=== PATIENT | female | born 1960 | race Caucasian/White ===

== ENCOUNTER 2017-10-12 08:02 | Outpatient (CLI) | payer MEDICARE | END 2017-10-12 08:03 | disposition home or self-care (01) | LOC: BICMAMMO 08:02 | PROVIDERS: ATTEND Obstetrics & Gynecology | DX: Z12.31 Encounter for screening mammogram for malignant neoplasm of breast (principal) | CPT/HCPCS: 77063; 77067 ==

== ENCOUNTER 2017-10-31 19:30 | Outpatient (CLI) | payer MEDICARE | END 2017-10-31 19:31 | disposition home or self-care (01) | LOC: SLEEPLAB 19:30 | PROVIDERS: ATTEND Orthopaedic Surgery Sports Medicine | DX: G47.9 Sleep disorder, unspecified (principal); R53.83 Other fatigue; R40.0 Somnolence; F32.9 Major depressive disorder, single episode, unspecified; G47.33 Obstructive sleep apnea (adult) (pediatric) | CPT/HCPCS: 95810 ==

== ENCOUNTER 2018-01-31 19:30 | Outpatient (CLI) | payer MEDICARE | END 2018-01-31 19:31 | disposition home or self-care (01) | LOC: SLEEPLAB 19:30 | PROVIDERS: ATTEND Obstetrics & Gynecology | DX: F51.9 Sleep disorder not due to a substance or known physiological condition, unspecified (principal); G47.33 Obstructive sleep apnea (adult) (pediatric); R53.83 Other fatigue; F32.9 Major depressive disorder, single episode, unspecified; R06.83 Snoring; G47.10 Hypersomnia, unspecified; E66.9 Obesity, unspecified; Z68.41 Body mass index [BMI] 40.0-44.9, adult | CPT/HCPCS: 95811 ==

== ENCOUNTER 2019-03-20 10:23 | Outpatient (CLI) | payer MEDICARE | END 2019-03-20 10:24 | disposition home or self-care (01) | LOC: DTY/OP 10:23 | PROVIDERS: ATTEND Specialist | DX: E66.01 Morbid (severe) obesity due to excess calories (principal); Z01.818 Encounter for other preprocedural examination | CPT/HCPCS: 36415; 80053; 80061; 82306; 82607; 82728; 82746; 83036; 83540; 84425; 84436; 84443; 84480; 85025; 86677; 97802 ==

== ENCOUNTER 2019-11-16 06:06 | Outpatient (CLI) | payer MEDICARE, OTHER ==
[2019-11-16 17:33] LABS: #Basophils 0.1 thou/uL (0.0-0.2); #Eosinphils 0.3 thou/uL (0.0-0.7); #Lymphocytes 2.7 thou/uL (1.20-3.40); #Monocytes 0.4 thou/uL (0.11-0.59); #Neutrophils 7.3 thou/uL (1.40-6.50); %Basophils 0.6 % (0.0-1.0); %Eosinophils 3.1 % (0.0-10.0); %Lymphocytes 24.6 % (21.0-51.0); %Neutrophils 67.7 % (42.0-75.0); Hemoglobin 13.7 g/dL (12.0-16.0); Mean Corpuscular HGB CONC 32.9 g/dL (32.0-36.0); Mean Corpuscular Volume 94.1 fL (78.0-98.0); Mean Platelet Volume 8.4 fL (7.4-10.4); Platelet Count 317 thou/uL (130-400); RBC Distribution Width 13.4 % (11.5-14.5); Red Blood Cell (RBC) Count 4.42 mill/uL (4.20-5.40); White Blood Cell (WBC) Count 10.8 thou/uL (4.8-10.8)
[2019-11-16 17:43] LABS: ALT (SGPT) 39 U/L (8-55); AST (SGOT) 35 U/L (5-34); Albumin 4.5 g/dL (3.5-5.0); Alkaline Phosphatase 144 U/L (40-110); Anion Gap 18 mmol/L (10-20); BUN (Urea Nitrogen) 10 mg/dL (9.8-20.1); Bilirubin, Total 0.3 mg/dL (0.2-1.2); Calc. Creatinine Clearance 0 mL/min (70-130); Calcium 9.7 mg/dL (7.8-10.44); Carbon Dioxide 28 mmol/L (22-29); Chloride 102 mmol/L (98-107); Estimated GFR-MDRD 78; Globulin 2.7 g/dL (2.4-3.5); Glucose 95 mg/dL (70-105); Lipase 24 U/L (8-78); Potassium 4.8 mmol/L (3.5-5.1); Protein, Total 7.2 g/dL (6.0-8.3); Sodium 143 mmol/L (136-145)
[2019-11-16 18:01] LABS: Free T4 (Free Thyroxine) 0.83 ng/dL (0.70-1.48); Thyroid Stimulating Hormone 0.9849 uIU/mL (0.35-4.94)
[2019-11-17 12:16] LABS: SARS-CoV-2 MS2 Positive; SARS-CoV-2 N Gene Negative; SARS-CoV-2 S Gene Negative; SARS-CoV-2 orf1ab Negative
== END 2019-11-16 06:07 | disposition home or self-care (01) ==
LOC: LABBT 06:06
PROVIDERS: ATTEND Internal Medicine
DX: Z01.812 Encounter for preprocedural laboratory examination (principal); Z11.59 Encounter for screening for other viral diseases; K21.9 Gastro-esophageal reflux disease without esophagitis; K52.9 Noninfective gastroenteritis and colitis, unspecified
CPT/HCPCS: 83516; 83690; 84439; U0003; 80053; 84443; 85025; 87635

== ENCOUNTER 2019-11-20 08:18 | Day surgery (SDC) | payer MEDICARE ==
[2019-11-13 11:21] VITALS: BMI 49.0
[2019-11-20] MEDS ORDERED: PROPOFOL 200 MG/20 ML VIAL ONE (12:29)
--- NOTE | 2019-11-20 12:36 | OP ---
DATE OF PROCEDURE: 11/20/2019 PROFESSOR OF BIOCHEMISTRY SURGEON: None. PROCEDURES PERFORMED: 1. Esophagogastroduodenoscopy with biopsies. 2. Colonoscopy with biopsies. INDICATIONS: 1. Chronic diarrhea. 2. Gastroesophageal reflux. 3. Prior history of colon polyps, with last colonoscopy 10 years ago. MEDICATIONS: See Anesthesia record. FINDINGS: After discussion of the risks, benefits, and alternatives of the procedure, informed consent was obtained and witnessed. Pre-endoscopic cardiopulmonary examination was satisfactory. Time-out was performed before sedation was achieved. Sedation was achieved with Anesthesia assistance in the endoscopy unit. A Pentax adult upper endoscope was placed into the oropharynx and passed through the cricopharyngeus under direct visualization. The esophageal mucosa appeared normal throughout with a normal-appearing Z-line at 36 cm from the incisors. The endoscope was then advanced into the stomach. Forward and retroflexed views of the entire gastric mucosa were obtained. There were few small fundic gland polyps in the gastric fundus and body. In the gastric body along the greater curvature, there are couple of areas of small linear erosions consistent with mild erosive gastritis. The remainder of the gastric mucosa appeared normal. Biopsies were obtained from the gastric antrum and body to rule out H pylori infection. The endoscope was advanced through the pylorus and into the first and second portions of the duodenum, which appeared normal. Duodenal biopsies were obtained to rule out celiac disease. The upper endoscope was completely removed and the patient was repositioned. Digital rectal exam was performed, which was unremarkable. A Pentax adult colonoscope was inserted into the anus and passed forward to the cecum in the usual fashion. The cecal base was identified by the appendiceal orifice as well as the ileocecal valve. The terminal ileum was intubated and the ileal mucosa appeared normal. The colonoscope was then slowly withdrawn in a gradual and circumferential manner with careful examination of the entire colonic mucosa. The quality of the prep was good. The colonic mucosa appeared normal throughout. I obtained random colon biopsies from the right colon and left colon for histology to rule out microscopic colitis, but there was no evidence of any inflammation seen endoscopically. There was diverticulosis in the sigmoid colon. Retroflexion in the rectum demonstrated small internal hemorrhoids. The colonoscope was completely withdrawn and the patient allowed to recover. The patient tolerated the procedure well. There were no immediate postprocedure complications. IMPRESSION: 1. Mild erosive gastritis in the gastric body, biopsied to rule out Helicobacter pylori. 2. Otherwise, normal esophagogastroduodenoscopy, with duodenal biopsies obtained to rule out celiac disease. 3. Sigmoid diverticulosis. 4. Internal hemorrhoids. 5. Otherwise, normal colonoscopy to the terminal ileum, with random colon biopsies obtained to rule out microscopic colitis. RECOMMENDATIONS: 1. Follow up pathology on the gastric duodenal and random colon biopsies. 2. Follow up stool studies, which are still pending. 3. If stool studies and pathology are unrevealing, we will likely trial her on a 2-week course of rifaximin 550 mg t.i.d. for treatment of IBS-D. 4. Repeat colonoscopy in 10 years for screening purposes. 5. Follow up in [facility] Clinic in 1 month. Job ID: [id number]
== END 2019-11-20 12:10 | disposition home or self-care (01) ==
LOC: SDC 08:18
PROVIDERS: ATTEND Internal Medicine
PROC: 0DB98ZX Excision of Duodenum, Via Natural or Artificial Opening Endoscopic, Diagnostic (ICD-10-PCS; principal; 2019-11-20)
PROC: 0DB78ZX Excision of Stomach, Pylorus, Via Natural or Artificial Opening Endoscopic, Diagnostic (ICD-10-PCS; 2019-11-20)
PROC: 0DBG8ZX Excision of Left Large Intestine, Via Natural or Artificial Opening Endoscopic, Diagnostic (ICD-10-PCS; 2019-11-20)
PROC: 0DBF8ZX Excision of Right Large Intestine, Via Natural or Artificial Opening Endoscopic, Diagnostic (ICD-10-PCS; 2019-11-20)
DX: K57.30 Diverticulosis of large intestine without perforation or abscess without bleeding (principal); K64.8 Other hemorrhoids; K31.89 Other diseases of stomach and duodenum; K52.9 Noninfective gastroenteritis and colitis, unspecified; K21.9 Gastro-esophageal reflux disease without esophagitis; I10 Essential (primary) hypertension; E78.5 Hyperlipidemia, unspecified; J45.909 Unspecified asthma, uncomplicated; M06.9 Rheumatoid arthritis, unspecified; F32.9 Major depressive disorder, single episode, unspecified; G47.33 Obstructive sleep apnea (adult) (pediatric); E11.9 Type 2 diabetes mellitus without complications; M79.7 Fibromyalgia; Z86.010 Personal history of colon polyps; Z79.84 Long term (current) use of oral hypoglycemic drugs; Z79.899 Other long term (current) drug therapy; Z88.2 Allergy status to sulfonamides; Z88.5 Allergy status to narcotic agent
CPT/HCPCS: 88305; 88312; J2704

== ENCOUNTER 2020-03-17 06:41 | Outpatient (CLI) | payer MEDICARE, OTHER ==
[2020-03-17 11:32] LABS: #Basophils 0.1 10x3/uL (0.0-0.2); #Eosinphils 0.2 10x3/uL (0.0-0.5); #Monocytes 0.5 10x3/uL (0.0-1.1); #Neutrophils 5.9 10x3/uL (1.5-8.4); %Basophils 0.7 % (0.0-2.0); %Eosinophils 2.5 % (0.0-6.0); %Lymphocytes 22.9 % (18.0-47.0); %Monocytes 5.4 % (0.0-10.0); %Neutrophils 67.9 % (40.0-75.0); Hemoglobin 12.6 g/dL (12.0-16.0); Mean Corpuscular HGB CONC 32.1 G/DL (32.0-36.0); Mean Corpuscular Hemoglobin 30.3 PG (27.0-33.0); Mean Corpuscular Volume 94.5 fl (80.0-100.0); Mean Platelet Volume 10.9 fl (7.4-10.4); Platelet Count 325 10x3/uL (130-400); Red Blood Cell (RBC) Count 4.16 10x6/uL (3.90-5.20); White Blood Cell (WBC) Count 8.6 10x3/uL (4.5-11.0)
[2020-03-17 12:00] LABS: Anion Gap 18 mmol/L (10-20); BUN (Urea Nitrogen) 13 mg/dL (9.8-20.1); Calc. Creatinine Clearance 0 mL/min (70-130); Calcium 9.1 mg/dL (7.8-10.44); Carbon Dioxide 23 mmol/L (22-29); Chloride 106 mmol/L (98-107); Estimated GFR-MDRD 81; Glucose 93 mg/dL (70-105); Potassium 4.7 mmol/L (3.5-5.1); Sodium 142 mmol/L (136-145)
[2020-03-18 12:08] LABS: SARS-CoV-2 MS2 Positive; SARS-CoV-2 N Gene Negative; SARS-CoV-2 S Gene Negative; SARS-CoV-2 by NAA Not Detected (NotDetected); SARS-CoV-2 orf1ab Negative
== END 2020-03-17 06:42 | disposition home or self-care (01) ==
LOC: LABBT 06:41
PROVIDERS: ATTEND Specialist
DX: Z01.812 Encounter for preprocedural laboratory examination (principal); E66.01 Morbid (severe) obesity due to excess calories; Z20.828 Contact with and (suspected) exposure to other viral communicable diseases
CPT/HCPCS: 80048; 85025; U0003; 87635

== ENCOUNTER 2020-03-17 09:00 | Inpatient (IN) | payer MEDICARE ==
[2020-03-19 09:34] VITALS: BMI 48.2
[2020-03-20] MEDS ORDERED: cefOXitin Sodium/Dextrose 2 GM/50 ML BAG ONE (06:26)
[2020-03-20] MEDS ORDERED: Acetaminophen 500 MG TAB ONE (06:26)
[2020-03-20] MEDS ORDERED: Scopolamine 1.5 mg/72 hour Patch ONE (06:26)
[2020-03-20] MEDS ORDERED: Ketorolac Tromethamine 30 MG/ML VIAL ONE (06:26)
[2020-03-20] MEDS ORDERED: Heparin 5,000 UNITS/ML VIAL ONE (06:26)
[2020-03-20] MEDS ORDERED: Bupivacaine 0.25% HCL 30 ML VIAL ONE (06:40)
[2020-03-20] MEDS ORDERED: EPINEPHrine 1 MG/ML AMP ONE (06:41)
[2020-03-20] MEDS ORDERED: Fentanyl 250 MCG/5 ML VIAL ONE (06:44)
[2020-03-20] MEDS ORDERED: Midazolam HCl 2 mg/2 ml Vial ONE ×2 (06:44→07:18)
[2020-03-20] MEDS ORDERED: Lidocaine 1% w/Epinephrine 1:100K 20 ML VIAL ONE (06:57)
[2020-03-20] MEDS ORDERED: Albuterol 200 PUFF (6.7GM INHALER) INH PRN (08:00)
[2020-03-20] MEDS ORDERED: Albuterol Sulfate 1.25 MG/3 ML NEB ONE (10:35)
[2020-03-20] MEDS ORDERED: Promethazine HCl 25 MG/ML VIAL SLOW IVP PRN (10:37)
[2020-03-20] MEDS ORDERED: Ondansetron HCl/PF 4 MG/2 ML Vial IVP PRN (10:37)
[2020-03-20] MEDS ORDERED: Promethazine HCl 25 MG/ML VIAL IM PRN ×2 (10:37→11:56)
[2020-03-20] MEDS ORDERED: Glycopyrrolate 0.2 MG/ML 5 ML SYRINGE ONE (11:01)
[2020-03-20] MEDS ORDERED: Metoclopramide HCl 10 MG/2 ML VIAL ONE (11:01)
[2020-03-20] MEDS ORDERED: Lidocaine 1% PF 5 ML VIAL ONE (11:01)
[2020-03-20] MEDS ORDERED: Rocuronium Bromide 10 MG/ML (10ML VIAL) ONE (11:01)
[2020-03-20] MEDS ORDERED: Ondansetron PF 4 MG/2 ML Vial ONE (11:01)
[2020-03-20] MEDS ORDERED: PROPOFOL 200 MG/20 ML VIAL ONE (11:01)
[2020-03-20] MEDS ORDERED: Fentanyl 100 MCG/2 ML VIAL ONE (11:13)
[2020-03-20] MEDS ORDERED: hydrALAZINE 20 MG/ML VIAL SLOW IVP PRN (11:56)
[2020-03-20] MEDS ORDERED: Dextrose 5% in Water 1,000 ML IV PRN (11:56)
[2020-03-20] MEDS ORDERED: Dextrose 50% Abboject 50 ML SYRINGE SLOW IVP PRN (11:56)
[2020-03-20] MEDS ORDERED: diphenhydrAMINE 50 MG/ML VIAL IVP PRN (11:56)
[2020-03-20] MEDS ORDERED: Insulin Regular 300 UNITS/3 ML VIAL SC PRN (11:56)
[2020-03-20] MEDS ORDERED: Ondansetron PF 4 MG/2 ML Vial IVP PRN (11:56)
[2020-03-20] MEDS ORDERED: Ketorolac Tromethamine 30 MG/ML VIAL IVP SCH (12:00)
[2020-03-20] MEDS: Morphine 2 MG/ML VIAL SLOW IVP PRN ×2 (12:12→17:08)
[2020-03-20] MEDS ORDERED: Pantoprazole 40 MG VIAL IVP SCH (12:45)
[2020-03-20] MEDS ORDERED: FLU VACC QS2020-21(6MOS UP)/PF 60 MCG/0.5 ML SYRINGE IM ONE (12:45)
[2020-03-20] MEDS: Carvedilol 25 MG TAB PO SCH ×2 (13:38→20:02)
[2020-03-20] MEDS: Bupropion 150 MG XL TAB PO SCH (13:38)
[2020-03-20] MEDS: 1/2 NS w/KCL 20 mEq 1,000 ML IV SCH (14:10)
[2020-03-20] MEDS ORDERED: Promethazine HCl 25 MG/ML VIAL IM SCH (17:45)
[2020-03-20] MEDS: Ketorolac Tromethamine 30 MG/ML VIAL IVP SCH (20:02)
[2020-03-20] MEDS ORDERED: Prazosin HCl 1 MG CAP PO SCH (21:00)
[2020-03-20] MEDS ORDERED: Amitriptyline HCl 25 MG TAB PO SCH (21:00)
[2020-03-20] MEDS ORDERED: Enoxaparin Sodium 40 MG/0.4 ML SYRINGE SC SCH (21:00)
[2020-03-20] MEDS: Hydrocodone-Acetamin 15 ML UDCUP PO PRN (21:05)
[2020-03-21] MEDS: Hydrocodone-Acetamin 15 ML UDCUP PO PRN ×3 (01:39→11:51)
[2020-03-21] MEDS: Ketorolac Tromethamine 30 MG/ML VIAL IVP SCH ×3 (01:40→15:00)
[2020-03-21] MEDS: 1/2 NS w/KCL 20 mEq 1,000 ML IV SCH ×3 (01:41→12:52)
[2020-03-21] MEDS: Morphine 2 MG/ML VIAL SLOW IVP PRN (05:22)
--- NOTE | 2020-03-21 07:12 | PDOC.GSPN ---
Surgery Progress Note: Subj - Subjective Narrative: Ms. Leslie is a 60 year old F POD1 Kiran-en-Y gastric bypass. She was sitting in her chair at the time of the visit this morning and was in moderate distress. She reported that she has had continuous nausea and abdominal cramping since awakening from her anesthesia. Both were relieved temporarily with medication but returned soon after the effects of the medications wore off. She has also been feeling bloated and having instances of heartburn. She has tenderness a round the incision sites and rates it an 8/10. She was unable to sleep last night for more than an hour and has been generally uncomfortable since the surgery. She was only able to eat Jello last night due to the nausea and reported that she tends to do better with warm liquids than cold ones. She also reports that breathing deeply is painful for her, but she is not short of breath. She did pass flatus and is able to urinate, but reports that it takes longer than usual to get the stream started. She has not had any bowel movements, vomiting, chest pain, or fevers. She has been ambulating frequently and using the incentive spirometer several times an hour. Surgery Progress Note: Obj - Vital signs Vital signs: Vital Signs - Most Recent Temp Pulse Resp BP Pulse Ox 97.9 F 97 19 117/74 94 L 03/21/20 03:08 03/21/20 03:08 03/21/20 03:08 03/21/20 03:08 03/21/20 03:08 She is maintaining O2 sat >90 on 2L nasal canula - Physical Exam General: moderate distress Cardiovascular: regular rate and rhythm Respiratory: clear to auscultation, breath sounds present, other (visible wincing with deep breathing) Abdomen: soft, positive bowel sounds, appropriately tender, distended Wound: healing well Surgery Progress Note: Results - Labs Lab results: Laboratory Results - last 12 hr 03/20/20 03/21/20 20:53 05:17 POC Glucose 106 H 101 H Surgery Progress Note: A/P - Plan Plan: Ms. Leslie is in moderate distress s/p Kiran-en-Y gastric bypass. 1. PRN Zofran and Phenergan to alleviate nausea 2. PRN pain medication to reduce discomfort from abdominal pain 3. Encouraged ambulation to help reduce the abdominal cramping and 4. Encouraged incentive spirometery 5. Continue bariatric clear liquid diet for now and advance to full liquid if she is able to tolerate the clear liquid diet 6. Reduce IV fluids from 125 ml/hr to 50 ml/hr 7. Continue DVT prophylaxis 8. Awaiting BMP and CBC results 9. Continue nasal canula to maintain O2 sat >92% We hope to discharge the patient in 24-48 hours.
[2020-03-21] MEDS: Carvedilol 25 MG TAB PO SCH (08:36)
[2020-03-21] MEDS: Bupropion 150 MG XL TAB PO SCH (08:36)
[2020-03-21 08:44] LABS: #Eosinphils 0.3 thou/uL (0.0-0.7); #Lymphocytes 1.6 thou/uL (1.20-3.40); #Monocytes 0.4 thou/uL (0.11-0.59); #Neutrophils 7.3 thou/uL (1.40-6.50); %Basophils 0.3 % (0.0-1.0); %Eosinophils 3.4 % (0.0-10.0); %Lymphocytes 16.1 % (21.0-51.0); %Monocytes 4.4 % (0.0-10.0); %Neutrophils 75.9 % (42.0-75.0); Hemoglobin 11.5 g/dL (12.0-16.0); Mean Corpuscular HGB CONC 33.7 g/dL (32.0-36.0); Mean Corpuscular Hemoglobin 32.2 pg (27.0-31.0); Mean Corpuscular Volume 95.6 fL (78.0-98.0); Mean Platelet Volume 7.6 fL (7.4-10.4); Platelet Count 250 thou/uL (130-400); RBC Distribution Width 12.2 % (11.5-14.5); Red Blood Cell (RBC) Count 3.58 mill/uL (4.20-5.40); White Blood Cell (WBC) Count 9.7 thou/uL (4.8-10.8)
[2020-03-21 08:58] LABS: Anion Gap 15 mmol/L (10-20); BUN (Urea Nitrogen) 8 mg/dL (9.8-20.1); Calc. Creatinine Clearance 144 mL/min (70-130); Calcium 8.7 mg/dL (7.8-10.44); Carbon Dioxide 26 mmol/L (22-29); Chloride 104 mmol/L (98-107); Estimated GFR-MDRD 84; Glucose 92 mg/dL (70-105); Potassium 3.8 mmol/L (3.5-5.1); Sodium 141 mmol/L (136-145)
[2020-03-21] MEDS ORDERED: Pantoprazole 40 MG VIAL IVP SCH (09:00)
[2020-03-21 09:44] VITALS: BP 120/71; TEMP 98.7
--- NOTE | 2020-03-24 05:47 | OP ---
DATE OF PROCEDURE: 03/20/2020 PREOPERATIVE DIAGNOSIS: Morbid obesity with history of significant gastroesophageal reflux disease. POSTOPERATIVE DIAGNOSIS: Morbid obesity with history of significant gastroesophageal reflux disease. PROCEDURE PERFORMED: Laparoscopic Kiran-en-Y gastric bypass. ASSISTANTS: Dr. Richardson Singh, and Rhina Robert, medical student. INDICATIONS FOR OPERATION: The patient is a 60-year-old morbidly obese (BMI is about 47) white female. She has undergone preoperative education and evaluation and presents at this time ready to proceed with her surgery. A gastric bypass was selected as the patient has significant history of gastroesophageal reflux and this is felt to be the operation likely to minimize further problems with reflux. DESCRIPTION OF OPERATION: Informed consent was obtained. The patient was taken to the operating room, where general endotracheal anesthesia was obtained with the patient in supine position. Abdomen was prepped with ChloraPrep and draped in sterile fashion. A 5 mm supraumbilical incision was created, through which a Veress needle was passed in the peritoneal cavity and pneumoperitoneum was established using carbon dioxide up to pressure of 15 mmHg. A 5 mm trocar port was passed through the same incision and laparoscopic camera was passed through this port. Under direct vision, 4 additional ports were placed including bilateral subcostal 5 mm ports, a 15 mm left paramedian port, and a 12 mm right paramedian port. Attention was turned first inferiorly. The omentum was very thickened and was unfortunately adherent to multiple structures in the lower abdomen. This appeared to be adherent to the sigmoid colon on the left and the right colon on the right. She had a history of hysterectomy as well as appendectomy. When I initially looked at mobilizing the omentum, I eventually decided not to because of the relatively extensive amount of adhesions inferiorly. I therefore decided to mobilize the omentum from the left to right. The omentum was identified in the left abdomen near the splenic flexure. It was then divided in a [id number] fashion toward the mid point of the transverse colon near the falciform ligament. At this point, the omentum was dissected down to the transverse colon. The dissection was carried out using the LigaSure device. Transverse colon was then elevated and ligament of Treitz was identified. About 40 cm distally, the small bowel was divided with a single firing of the white load of the Ceresco stapler. The distal stapled end of the small bowel was devascularized for a length of about 5 cm using the LigaSure device. I traced the small bowel 100 cm distally and at this level, I created an anastomosis between the proximal stapled end of the bowel (the biliary limb) and the Kiran limb. Anastomosis was created with a single fire of the 60 mm white load of the Ceresco stapler. The common enterotomy was closed transversely with 2 fires of the same stapler. The closure was directly transverse across the small bowel. There appeared to be no luminal narrowing. The mesenteric defect was closed with 2 interrupted [id number]-sy-ekjiu sutures of 3-0 Vicryl. Attention was then turned to the upper abdomen. The patient was placed in reverse Trendelenburg. A Mal retractor was placed through a 5 mm epigastric port and used to elevate the left lobe of the liver. The liver, although perhaps somewhat smaller, still had definite fatty change which made exposure a little more challenging. I was able to identify the angle of His and this was dissected carefully. There was noted to be a fairly intimate attachment between the fundus of the stomach and the upper pole of the spleen. The lesser curve was dissected about 5 cm from the gastroesophageal junction and entry was gained into the lesser sac. The stomach was then partially divided at this level with a transverse fire of the 60 mm Ceresco stapler using a blue load. Inferior to the staple line, a gastrotomy was created, through which a 25 mm EEA anvil was passed into the upper pouch. The anvil was brought out through the anterior gastric wall just superior to the staple line using the 5 mm band passer. The gastrotomy was then closed with 2 fires of the blue load of the Ceresco stapler. The gastric pouch was then completed with 2 firings of the blue load of the Ceresco stapler in an ascending fashion. The Ethicon adherent buttressing device was used for all 3 fires that were used to create the gastric pouch. The spike was removed from the anvil. An enterotomy was created in the devascularized segment of the small bowel and the 25 mm EEA stapler was advanced through this beyond the mesenteric split and the spike was advanced through the antimesenteric segment of the small bowel. This was mated to the anvil in the gastric pouch. The 2 segments were approximated and anastomosed by firing the stapler. The devascularized segment of the small bowel in continuity with the enterotomy was removed with a final firing of the white load of the Ceresco stapler. The gastrojejunostomy was buttressed with 3 interrupted sutures of 3-0 Vicryl. An orogastric tube was advanced through the gastrojejunostomy anastomosis into the upper jejunum. The anastomosis was then checked for leaks by insufflating the bowel and stomach with air while it was under water and the bowel was clamped. There was no evidence of . All irrigant was aspirated. The fascial defect at the 15 mm port site was closed with 0 Vicryl suture using a GraNee needle. The Mal retractor was removed. All ports and instruments were removed under direct vision. Wounds were irrigated, especially the 15 mm incision. Skin incisions were approximated with 4-0 Monocryl subcuticular suture and Dermabond was placed externally. There were no complications. The patient tolerated it well and was taken to recovery room in stable condition. Job ID: [id number]
== END 2020-03-21 18:01 | disposition home or self-care (01) | DRG 621 ==
LOC: SURG A 03-20 06:01 → SURG B 03-20 11:41
PROVIDERS: ADMIT Specialist; ATTEND Specialist
PROC: 0D164ZA Bypass Stomach to Jejunum, Percutaneous Endoscopic Approach (ICD-10-PCS; principal; 2020-03-20)
DX: E66.01 Morbid (severe) obesity due to excess calories (principal); Z68.41 Body mass index [BMI] 40.0-44.9, adult; K21.9 Gastro-esophageal reflux disease without esophagitis; M06.9 Rheumatoid arthritis, unspecified; M79.7 Fibromyalgia; E78.00 Pure hypercholesterolemia, unspecified; F41.9 Anxiety disorder, unspecified; F32.9 Major depressive disorder, single episode, unspecified; G62.9 Polyneuropathy, unspecified; Z79.899 Other long term (current) drug therapy; Z79.84 Long term (current) use of oral hypoglycemic drugs; Z90.49 Acquired absence of other specified parts of digestive tract; Z87.891 Personal history of nicotine dependence; Z88.2 Allergy status to sulfonamides; Z88.8 Allergy status to other drugs, medicaments and biological substances
CPT/HCPCS: 36415; 36416; 80048; 85025; 87635; C9113; J0171; J0694; J1644; J1650; J1885; J2175; J2250; J2270; J2405; J2550; J2704; J2765; J3010; J3480; S0020; U0003

== ENCOUNTER 2020-07-16 08:07 | Outpatient (CLI) | payer MEDICARE ==
--- NOTE | 2020-07-16 09:01 | BD ---
EXAM: DEXA bone density examination HISTORY: 60-year-old postmenopausal female for screening COMPARISON: None FINDINGS: L1--bone mineral density 0.766 g/sq cm; T score -2.0 L2--bone mineral density 0.852 g/sq cm; T score -1.6 L3--bone mineral density 0.962 g/sq cm; T score -1.1 L4--bone mineral density 1.024 g/sq cm; T score -0.3 Total L1-L4--bone mineral density 0.912 g/sq cm; T score -1.2 Left femoral neck--bone mineral density0.688; T score -1.5 Total proximal left femur--bone mineral density 0.966; T score 0.2 IMPRESSION: Osteopenia.
--- NOTE | 2020-07-16 09:07 | MMO ---
Bilateral MAMMO Bilat Screen [facility]. CLINICAL HISTORY: Patient is 60 years old and is seen for screening. The patient has no family history of breast cancer. The patient has no personal history of cancer. VIEWS: The views performed were: bilateral craniocaudal with tomosynthesis and bilateral mediolateral oblique with tomosynthesis. FILMS COMPARED: The present examination has been compared to a prior imaging study performed at [facility] on 10/12/2017. This study has been interpreted with the assistance of computer-aided detection. MAMMOGRAM FINDINGS: There are scattered fibroglandular densities. There are no suspicious masses, suspicious calcifications, or new areas of architectural distortion. IMPRESSION: THERE IS NO MAMMOGRAPHIC EVIDENCE OF MALIGNANCY. A ROUTINE FOLLOW-UP MAMMOGRAM IN 1 YEAR IS RECOMMENDED. THE RESULTS OF THIS EXAM WERE SENT TO THE PATIENT. ACR BI-RADS Category 1 - Negative MAMMOGRAPHY NOTE: 1. A negative mammogram report should not delay a biopsy if a dominant of clinically suspicious mass is present. 2. Approximately 10% to 15% of breast cancers are not detected by mammography. 3. Adenosis and dense breasts may obscure an underlying neoplasm. Reported by: JOSEPHINE SALEH MD Electonically Signed: [id number]
== END 2020-07-16 08:08 | disposition home or self-care (01) ==
LOC: BICMAMMO 08:07
PROVIDERS: ATTEND Registered Nurse
DX: Z12.31 Encounter for screening mammogram for malignant neoplasm of breast (principal); Z13.820 Encounter for screening for osteoporosis; M85.89 Other specified disorders of bone density and structure, multiple sites; Z78.0 Asymptomatic menopausal state
CPT/HCPCS: 77063; 77067; 77080

== ENCOUNTER 2022-12-21 09:09 | Outpatient (CLI) | payer MEDICARE | END 2022-12-21 09:10 | disposition home or self-care (01) | LOC: SCSMRI 09:09 | DX: M51.16 Intervertebral disc disorders with radiculopathy, lumbar region (principal); M47.816 Spondylosis without myelopathy or radiculopathy, lumbar region; M47.817 Spondylosis without myelopathy or radiculopathy, lumbosacral region | CPT/HCPCS: 72148 ==

== ENCOUNTER 2023-03-30 11:44 | Outpatient (CLI) | payer MEDICARE | END 2023-03-30 11:45 | disposition home or self-care (01) | LOC: BICMAMMO 11:44 | PROVIDERS: ATTEND Registered Nurse | DX: Z12.31 Encounter for screening mammogram for malignant neoplasm of breast (principal) | CPT/HCPCS: 77063; 77067 ==

== ENCOUNTER 2024-02-13 23:45 | Inpatient (IN) | payer MEDICARE ==
[~2024-02-13 23:45] MED LIST: Iopamidol 370 76% 100 ML VIAL ONE
[2024-02-13] MEDS ORDERED: NOREPINEPHRINE 8 MG/250 ML-D5W 250 ML ONE (23:47)
[2024-02-14 00:26] LABS: Bacteria/HPF None Seen HPF (None Seen); Bilirubin Negative (Negative); Blood, Urine Negative (Negative); CAUTI Indications for Culture Alt mental st,lethar; Clarity Clear (Clear); Glucose, Urine (Dipstick) Normal (Negative); Ketone, Urine Negative (Negative); Leukocyte Negative Leu/uL (Negative); Nitrite Negative (Negative); Protein, Urine (Dipstick) Negative (Neg-Trace); RBC/HPF None Seen HPF (0-3); Squamous Epithelial None Seen HPF (0-3); Urobilinogen Normal mg/dL (Less than 2); WBC/HPF 0-3 HPF (0-3)
[2024-02-14 00:28] LABS: Urine Culture Reflex No No
[2024-02-14 00:32] LABS: Amphetamine Not Detected (NotDetected); Barbiturates Screen Not Detected (NotDetected); Benzodiazepine Screen Not Detected (NotDetected); Cocaine Metabolite Screen Not Detected (NotDetected); Methadone Not Detected (NotDetected); Methamphetamine Not Detected (NotDetected); Opiate Screen Detected (NotDetected); Oxycodone Screen Not Detected (NotDetected); Phencyclidine (PCP) Not Detected (NotDetected); THC/Cannabinoid Screen Not Detected (NotDetected); Tricyclic Screen Detected (NotDetected)
[2024-02-14 00:41] LABS: #Basophils Less than 0.03 10x3/uL (0.0-0.2); %Basophils 0.2 % (0.0-1.0); %Eosinophils 3.8 % (0.0-10.0); %Lymphocytes 18.1 % (21.0-51.0); %Monocytes 6.9 % (0.0-10.0); %Neutrophils 70.8 % (42.0-75.0); Hematocrit 36.6 % (36.0-47.0); Hemoglobin 12.2 g/dL (12.0-16.0); Mean Corpuscular HGB CONC 33.3 g/dL (32.0-36.0); Mean Corpuscular Hemoglobin 31.2 pg (27.0-31.0); Mean Corpuscular Volume 93.6 fL (78.0-98.0); Mean Platelet Volume 10.9 fL (7.4-10.4); Platelet Count 209 10x3/uL (130-400); RBC Distribution Width 12.6 % (11.5-14.5); Red Blood Cell (RBC) Count 3.91 mill/uL (4.20-5.40)
[2024-02-14] MEDS ORDERED: Piperacillin/Tazobactam 4.5 GM VIAL ONE (00:54)
[2024-02-14] MEDS ORDERED: Sodium Chloride 0.9% 100 ML ONE (00:54)
[2024-02-14 00:55] LABS: INR-International Normal Ratio 1.1; Lipase 11 U/L (8-78); Magnesium 1.8 mg/dL (1.6-2.6); PTT 35.9 sec (22.9-36.1)
[2024-02-14 00:56] LABS: Acetaminophen Less than 10 mcg/mL (Less than 10); Alcohol Less than 10.0 mg/dL (Less than 10); Salicylate Less than 8.0 mg/dL (Less than 8.0)
[2024-02-14 00:57] LABS: ALT (SGPT) 408 U/L (8-55); AST (SGOT) 551 U/L (5-34); Albumin 2.9 g/dL (3.4-4.8); Alkaline Phosphatase 264 U/L (40-110); Anion Gap 14 mmol/L (10-20); BUN (Urea Nitrogen) 10 mg/dL (9.8-20.1); Bilirubin, Total 0.5 mg/dL (0.2-1.2); Calc. Creatinine Clearance 0 mL/min (70-130); Calcium 7.9 mg/dL (7.8-10.44); Carbon Dioxide 22 mmol/L (23-31); Chloride 106 mmol/L (98-107); Estimated GFR 99; Globulin 2.3 g/dL (2.4-3.5); Glucose 104 mg/dL (80-115); Potassium 3.5 mmol/L (3.5-5.1); Protein, Total 5.2 g/dL (5.8-8.1); Sodium 138 mmol/L (136-145)
[2024-02-14 01:01] LABS: Troponin I 0.014 ng/mL (< 0.028)
[2024-02-14 01:02] LABS: Actual Bicarbonate (HCO3v) 23.5 mEq/L (22-28); Analyzer IN Cardio ER; Base Excess -2.5 mEq/L (-2.0 to +3.0); Calcium, Ionized (venous) 1.08 mmol/L (1.16-1.32); Chloride (VBG) 103 mmol/L (98-106); Hematocrit-VBG 43 % (36.0-47.0); Hemoglobin (Hb) 14.5 g/dL (11.7-16.0); Sodium 137 mmol/L (133-146); pH (venous) 7.337 (7.32-7.43)
[2024-02-14] MEDS ORDERED: CALCIUM GLUC 1 GM/NS 50 ML IV Bag ONE (02:54)
[2024-02-14] MEDS ORDERED: Atropine Sulfate 1 mg/10 ml Syringe ONE (02:54)
[2024-02-14] MEDS ORDERED: Ondansetron PF 4 MG/2 ML Vial ONE (02:54)
[2024-02-14] MEDS ORDERED: Acetaminophen 650 MG Suppository PR PRN (03:46)
[2024-02-14] MEDS ORDERED: Ondansetron ODT 4 MG TAB PO PRN (03:46)
[2024-02-14] MEDS ORDERED: Ondansetron PF 4 MG/2 ML Vial IVP PRN (03:46)
[2024-02-14] MEDS ORDERED: Glucagon 1 MG/ML KIT ONE (03:57)
[2024-02-14] MEDS ORDERED: Dextrose 5%-Lactated Ringers 1,000 ML IV SCH (04:29)
[2024-02-14 04:38] LABS: Troponin I 0.016 ng/mL (< 0.028)
[2024-02-14] MEDS ORDERED: INSULIN REGULAR IN 0.9 % NACL 100 UNITS in Premix 1 BAG IVPB SCH (04:45)
[2024-02-14] MEDS ORDERED: INSULIN REGULAR IN 0.9 % NACL 0 ML ONE (05:41)
[2024-02-14 06:00] LABS: Anion Gap 11 mmol/L (10-20); BUN (Urea Nitrogen) 9 mg/dL (9.8-20.1); Calc. Creatinine Clearance 122 mL/min (70-130); Calcium 7.5 mg/dL (7.8-10.44); Carbon Dioxide 20 mmol/L (23-31); Chloride 116 mmol/L (98-107); Estimated GFR 101; Glucose 140 mg/dL (80-115); Potassium 3.4 mmol/L (3.5-5.1); Sodium 144 mmol/L (136-145)
[2024-02-14 06:13] LABS: Campy jejuni + coli by PCR Negative (Negative); STEC Shiga Toxin 1+2 Negative (Negative); Salmonella spp. by PCR Negative (Negative); Shigella spp + EIEC by PCR Negative (Negative)
[2024-02-14 06:20] VITALS: BMI 36.6
[2024-02-14 06:26] LABS: HBCM Index 0.13 S/CO (0-0.79); HBsAg Index 0.29 S/CO (0-0.99); Hep A IgM AB NONREACTIVE (NonReactive); Hep A IgM S/CO 0.25 S/CO (0-0.79); Hep B Surf Ag NONREACTIVE S/CO (NonReactive); Hep C IgG Ab NONREACTIVE S/CO (NonReactive); Hep C Index 0.04 S/CO (0-0.79); Hepatitis B Core IgM Abs NONREACTIVE S/CO (NonReactive)
[2024-02-14] MEDS: Dextrose 5%-Lactated Ringers 1,000 ML IV SCH (06:42)
[2024-02-14] MEDS: Lactated Ringer's 1,000 ML IV SCH (07:39)
[2024-02-14] MEDS: Acetaminophen 325 MG TAB PO SCH (08:10)
[2024-02-14] MEDS: Famotidine/PF 20 mg/2ml Vial SLOW IVP SCH (08:11)
[2024-02-14] MEDS: Famotidine 20 MG TAB PO SCH (08:11)
[2024-02-14] MEDS: FLU (Fluarix Triv) TS24-25(6MOS UP)/PF 45 MCG/0.5 ML Syringe IM ONE (08:12)
[2024-02-14] MEDS: Potassium Chloride 20 MEQ in Premix 1 BAG IVPB SCH (08:29)
[2024-02-14] MEDS ORDERED: Electrolyte Replacement Protocol FS PRN (08:30)
[2024-02-14] MEDS: Potassium Chloride 20 MEQ TAB PO SCH (09:17)
[2024-02-14] MEDS: Magnesium 2 GM/50 ML(in water) 2 GM in Premix 1 BAG IVPB SCH (09:17)
[2024-02-14] MEDS: DULoxetine 60 MG CAP PO SCH (09:33)
[2024-02-14] MEDS: Senokot S 8.6-50 MG TAB PO SCH (09:35)
[2024-02-14 10:21] LABS: Troponin I Less than 0.010 ng/mL (< 0.028)
[2024-02-14 17:05] LABS: Potassium 4.1 mmol/L (3.5-5.1)
[2024-02-14] MEDS ORDERED: Atorvastatin Calcium 20 MG TAB PO SCH (21:00)
[2024-02-14] MEDS: QUEtiapine 100 MG TAB PO SCH (21:12)
[2024-02-15] MEDS: traMADol HCl 50 MG TAB PO SCH (01:11)
[2024-02-15 05:34] LABS: ALT (SGPT) 225 U/L (8-55); AST (SGOT) 136 U/L (5-34); Albumin 2.9 g/dL (3.4-4.8); Alkaline Phosphatase 208 U/L (40-110); Anion Gap 11 mmol/L (10-20); BUN (Urea Nitrogen) 4 mg/dL (9.8-20.1); Bilirubin, Total 0.2 mg/dL (0.2-1.2); Calc. Creatinine Clearance 131 mL/min (70-130); Calcium 8.3 mg/dL (7.8-10.44); Carbon Dioxide 26 mmol/L (23-31); Chloride 112 mmol/L (98-107); Estimated GFR 101; Globulin 2.3 g/dL (2.4-3.5); Glucose 77 mg/dL (80-115); Potassium 4.1 mmol/L (3.5-5.1); Protein, Total 5.2 g/dL (5.8-8.1); Sodium 145 mmol/L (136-145)
[2024-02-15 05:45] LABS: #Basophils 0.03 10x3/uL (0.0-0.2); %Basophils 0.9 % (0.0-1.0); %Eosinophils 4.7 % (0.0-10.0); %Lymphocytes 46.6 % (21.0-51.0); %Monocytes 9.7 % (0.0-10.0); %Neutrophils 37.8 % (42.0-75.0); Hematocrit 33.9 % (36.0-47.0); Mean Corpuscular HGB CONC 32.4 g/dL (32.0-36.0); Mean Corpuscular Hemoglobin 30.6 pg (27.0-31.0); Mean Corpuscular Volume 94.4 fL (78.0-98.0); Mean Platelet Volume 11.4 fL (7.4-10.4); Platelet Count 193 10x3/uL (130-400); Red Blood Cell (RBC) Count 3.59 mill/uL (4.20-5.40)
[2024-02-15 12:57] VITALS: BP 149/81; TEMP 98.2
== END 2024-02-15 13:12 | disposition home or self-care (01) | DRG 917 ==
LOC: ERS 23:45 → ERHOLD 02-14 03:51 → CCU 02-14 06:00 → SURG A 02-14 21:30
PROVIDERS: ADMIT Student in an Organized Health Care Education/Training Program; ATTEND Internal Medicine
DX: T44.7X1A Poisoning by beta-adrenoreceptor antagonists, accidental (unintentional), initial encounter (principal); G93.41 Metabolic encephalopathy; E86.0 Dehydration; Z66 Do not resuscitate; J45.909 Unspecified asthma, uncomplicated; Z79.82 Long term (current) use of aspirin; Z79.899 Other long term (current) drug therapy; F32.A Depression, unspecified; Z90.49 Acquired absence of other specified parts of digestive tract; Z98.890 Other specified postprocedural states; Z90.710 Acquired absence of both cervix and uterus; Z88.2 Allergy status to sulfonamides
CPT/HCPCS: 36415; 36416; 70450; 71045; 74177; 80053; 80074; 80306; 80307; 81001; 82805; 83605; 83690; 83735; 84484; 85025; 85610; 85730; 87040; 87324; 87449; 87505; 93005; 94760; 96374; 96375; J0461; J0613; J1611; J1815; J2405; J2543; J3475; J3480; J3490; J7120; Q9967

== ENCOUNTER 2024-04-02 08:33 | Outpatient (CLI) | payer MEDICARE | END 2024-04-02 08:34 | disposition home or self-care (01) | LOC: BICMAMMO 08:33 | PROVIDERS: ATTEND Registered Nurse | DX: Z12.31 Encounter for screening mammogram for malignant neoplasm of breast (principal); M81.0 Age-related osteoporosis without current pathological fracture; M85.851 Other specified disorders of bone density and structure, right thigh; M85.852 Other specified disorders of bone density and structure, left thigh; Z78.0 Asymptomatic menopausal state | CPT/HCPCS: 77063; 77067; 77080 ==

== ENCOUNTER 2025-01-24 20:42 | Inpatient (IN) | payer MEDICARE ==
[2025-01-24 21:27] LABS: Hematocrit 35.6 % (36.0-47.0); Hemoglobin 11.1 g/dL (12.0-16.0); Mean Corpuscular Hemoglobin 29.8 pg (27.0-31.0); Mean Corpuscular Volume 95.7 fL (78.0-98.0); Platelet Count 355 10x3/uL (130-400); Red Blood Cell (RBC) Count 3.72 mill/uL (4.20-5.40); White Blood Cell (WBC) Count 11.16 10x3/uL (4.8-10.8)
[2025-01-24 21:41] LABS: ALT (SGPT) 13 U/L (Less than 34); AST (SGOT) 26 U/L (11-34); Albumin 2.9 g/dL (3.1-4.5); Alkaline Phosphatase 230 U/L (40-110); Anion Gap 13 mmol/L (10-20); BUN (Urea Nitrogen) 61 mg/dL (9.8-20.1); Bilirubin, Total 0.9 mg/dL (0.3-1.2); Calc. Creatinine Clearance 0 mL/min (70-130); Calcium 8.6 mg/dL (7.8-10.44); Carbon Dioxide 24 mmol/L (23-31); Chloride 107 mmol/L (98-107); Globulin 3.0 g/dL (2.4-3.5); Glucose 79 mg/dL (80-115); Potassium 5.0 mmol/L (3.5-5.1); Sodium 139 mmol/L (136-145)
[2025-01-24 21:42] LABS: Acetaminophen Less than 10 mcg/mL (Less than 10); Salicylate Less than 8.0 mg/dL (Less than 8.0)
[2025-01-24 21:47] LABS: Burr Cells SLIGHT = 2-5 cells HPF (0-1); Platelet Adequacy Comment Platelets Normal; Smudge Cells 0.9 %
[2025-01-24] MEDS ORDERED: Glucagon 1 MG/ML KIT IM PRN (22:12)
[2025-01-25 04:57] LABS: Hematocrit 34.9 % (36.0-47.0); Hemoglobin 10.6 g/dL (12.0-16.0); Mean Corpuscular Hemoglobin 29.3 pg (27.0-31.0); Mean Corpuscular Volume 96.4 fL (78.0-98.0); Platelet Count 321 10x3/uL (130-400); Red Blood Cell (RBC) Count 3.62 mill/uL (4.20-5.40); White Blood Cell (WBC) Count 6.40 10x3/uL (4.8-10.8)
[2025-01-25 05:18] LABS: Anion Gap 16 mmol/L (10-20); BUN (Urea Nitrogen) 49 mg/dL (9.8-20.1); Calc. Creatinine Clearance 71 mL/min (70-130); Calcium 8.2 mg/dL (7.8-10.44); Carbon Dioxide 24 mmol/L (23-31); Chloride 108 mmol/L (98-107); Glucose 75 mg/dL (80-115); Potassium 4.6 mmol/L (3.5-5.1); Sodium 143 mmol/L (136-145)
[2025-01-25 05:33] LABS: Platelet Adequacy Comment Platelets Normal; Smudge Cells 2.8 %
[2025-01-25] MEDS: Dextrose 50% Abboject 50 ML SYRINGE SLOW IVP PRN (05:43)
[2025-01-25] MEDS: Pantoprazole 40 MG VIAL IVP SCH (07:19)
[2025-01-25] MEDS ORDERED: Electrolyte Replacement Protocol 1 EACH FS SCH (08:30)
[2025-01-25] MEDS ORDERED: Etomidate 40 MG (20 mL) VIAL ONE (11:25)
[2025-01-25] MEDS ORDERED: fentaNYL PF 100 MCG/2 ML SYRINGE ONE (11:25)
[2025-01-25] MEDS ORDERED: Rocuronium Bromide 10 MG/ML (10ML VIAL) ONE (11:27)
[2025-01-25] MEDS ORDERED: SUCCINYLCHOLINE/SOD CL,ISO/PF 200 MG/10 ML SYRINGE FS ONE (11:55)
[2025-01-25] MEDS ORDERED: MINERAL OIL/WHITE PETROLATUM 3.5 GM TUBE ONE (12:02)
[2025-01-25] MEDS ORDERED: HYDROmorphone 2 MG/ML VIAL ONE (13:58)
[2025-01-25] MEDS ORDERED: Propofol BOLUS 1,000 MG/100 ML VIAL IV PRN (15:00)
[2025-01-25] MEDS ORDERED: Fentanyl BOLUS 100 ML IVPB PRN (15:00)
[2025-01-25] MEDS ORDERED: DISCONTINUE PREVIOUS NARCOTIC PAIN MEDICATIONS AND BENZODIAZEPINES FS SCH (15:00)
[2025-01-25 15:32] LABS: Actual Bicarbonate (HCO3a) 23.0 mEq/L (22-28); Base Excess (BEa) -1.7 mEq/L (-2.0 to +3.0); CO2 Tension 39.2 mmHg (35.0-45.0); Calcium, Ionized (arterial) 1.05 mmol/L (1.12-1.30); Hematocrit-ABG 35 % (36.0-47.0); Hemoglobin (Hb) 12.0 g/dL (12.0-16.0); O2 Tension (PaO2), arterial 133.5 mmHg (> 80.0); Potassium - ABG Lab 3.85 mmol/L (3.70-5.30); pH, Arterial 7.387 (7.35-7.45)
[2025-01-25 16:09] LABS: ALV-art Gradient 174.000 mmHg (0-20); Puncture Site Left Radial artery
[2025-01-26 01:22] VITALS: BMI 35.7
[2025-01-26 03:06] LABS: Hematocrit 37.8 % (36.0-47.0); Hemoglobin 11.7 g/dL (12.0-16.0); Mean Corpuscular Hemoglobin 29.5 pg (27.0-31.0); Mean Corpuscular Volume 95.2 fL (78.0-98.0); Platelet Count 330 10x3/uL (130-400); Red Blood Cell (RBC) Count 3.97 mill/uL (4.20-5.40); White Blood Cell (WBC) Count 8.54 10x3/uL (4.8-10.8)
[2025-01-26 03:20] LABS: Anion Gap 16 mmol/L (10-20); BUN (Urea Nitrogen) 21 mg/dL (9.8-20.1); Calc. Creatinine Clearance 140 mL/min (70-130); Calcium 7.6 mg/dL (7.8-10.44); Carbon Dioxide 23 mmol/L (23-31); Chloride 113 mmol/L (98-107); Glucose 95 mg/dL (80-115); Potassium 3.5 mmol/L (3.5-5.1); Sodium 148 mmol/L (136-145)
[2025-01-26 03:34] LABS: Anisocytosis SLIGHT = 6-15 cells HPF (0-5); Nucleated RBC (Manual Ct) 2 % (0); Platelet Adequacy Comment Platelets Normal; Polychromasia SLIGHT = 2-3 cells HPF (0-2)
[2025-01-26 07:50] LABS: Actual Bicarbonate (HCO3a) 24.1 mEq/L (22-28); Base Excess (BEa) -0.3 mEq/L (-2.0 to +3.0); CO2 Tension 38.6 mmHg (35.0-45.0); Calcium, Ionized (arterial) 1.05 mmol/L (1.12-1.30); Hematocrit-ABG 35 % (36.0-47.0); Hemoglobin (Hb) 11.9 g/dL (12.0-16.0); O2 Tension (PaO2), arterial 92.9 mmHg (> 80.0); Potassium - ABG Lab 3.43 mmol/L (3.70-5.30); pH, Arterial 7.413 (7.35-7.45)
[2025-01-26 07:56] LABS: ALV-art Gradient 215.350 mmHg (0-20); Puncture Site Right Radial artery
[2025-01-26] MEDS: Enoxaparin 40 MG (0.4 mL) SYRINGE SC SCH (10:30)
[2025-01-27 04:35] LABS: #Basophils 0.06 10x3/uL (0.0-0.2); #Eosinophils 0.23 10x3/uL (0.0-0.7); #Monocytes 0.98 10x3/uL (0.11-0.59); #Neutrophils 11.46 10x3/uL (1.40-6.50); %Basophils 0.4 % (0.0-1.0); %Eosinophils 1.6 % (0.0-10.0); %Lymphocytes 10.6 % (21.0-51.0); %Monocytes 6.7 % (0.0-10.0); %Neutrophils 78.2 % (42.0-75.0); Hematocrit 33.8 % (36.0-47.0); Hemoglobin 10.5 g/dL (12.0-16.0); Mean Corpuscular Hemoglobin 29.5 pg (27.0-31.0); Mean Corpuscular Volume 94.9 fL (78.0-98.0); Platelet Count 301 10x3/uL (130-400); Red Blood Cell (RBC) Count 3.56 mill/uL (4.20-5.40); White Blood Cell (WBC) Count 14.66 10x3/uL (4.8-10.8)
[2025-01-27 04:55] LABS: Anion Gap 15 mmol/L (10-20); BUN (Urea Nitrogen) 9 mg/dL (9.8-20.1); Calc. Creatinine Clearance 159 mL/min (70-130); Calcium 7.4 mg/dL (7.8-10.44); Carbon Dioxide 25 mmol/L (23-31); Chloride 111 mmol/L (98-107); Glucose 112 mg/dL (80-115); Potassium 3.7 mmol/L (3.5-5.1); Sodium 147 mmol/L (136-145)
[2025-01-27] MEDS: Ondansetron PF 4 MG/2 ML Vial IVP PRN (09:29)
[2025-01-27] MEDS: Lactulose 20 GM (30 mL) UDCUP PER TUBE SCH (09:29)
[2025-01-27] MEDS: DC Sedation Protocol FS ONE (09:30)
[2025-01-27 21:33] LABS: Cocaine Metabolite Screen Negative (Negative); THC/Cannabinoid Screen Negative (Negative); Tricyclic Screen Negative (Negative)
[2025-01-28 06:49] LABS: #Basophils 0.07 10x3/uL (0.0-0.2); #Eosinophils 0.40 10x3/uL (0.0-0.7); #Monocytes 0.70 10x3/uL (0.11-0.59); #Neutrophils 14.88 10x3/uL (1.40-6.50); %Basophils 0.4 % (0.0-1.0); %Eosinophils 2.2 % (0.0-10.0); %Lymphocytes 7.8 % (21.0-51.0); %Monocytes 3.9 % (0.0-10.0); %Neutrophils 83.6 % (42.0-75.0); Hematocrit 35.1 % (36.0-47.0); Hemoglobin 10.7 g/dL (12.0-16.0); Mean Corpuscular Hemoglobin 29.3 pg (27.0-31.0); Mean Corpuscular Volume 96.2 fL (78.0-98.0); Platelet Count 236 10x3/uL (130-400); Red Blood Cell (RBC) Count 3.65 mill/uL (4.20-5.40); White Blood Cell (WBC) Count 17.82 10x3/uL (4.8-10.8)
[2025-01-28 07:13] LABS: Anion Gap 15 mmol/L (10-20); BUN (Urea Nitrogen) 8 mg/dL (9.8-20.1); Calc. Creatinine Clearance 170 mL/min (70-130); Calcium 7.1 mg/dL (7.8-10.44); Carbon Dioxide 25 mmol/L (23-31); Chloride 111 mmol/L (98-107); Glucose 182 mg/dL (80-115); Potassium 3.0 mmol/L (3.5-5.1); Sodium 148 mmol/L (136-145)
[2025-01-28] MEDS: Potassium Chloride 20 MEQ in Premix 1 BAG IVPB SCH (08:12)
[2025-01-28] MEDS: Acetaminophen 325 MG TAB PO PRN (20:40)
[2025-01-29] MEDS: Simethicone Chewable 80 MG TAB PO PRN (00:34)
[2025-01-29 08:30] LABS: Mean Corpuscular Hemoglobin 29.5 pg (27.0-31.0)
[2025-01-29 08:46] LABS: Anion Gap 12 mmol/L (10-20); BUN (Urea Nitrogen) 8 mg/dL (9.8-20.1); Calc. Creatinine Clearance 185 mL/min (70-130); Calcium 6.7 mg/dL (7.8-10.44); Carbon Dioxide 23 mmol/L (23-31); Chloride 111 mmol/L (98-107); Glucose 145 mg/dL (80-115); Potassium 4.2 mmol/L (3.5-5.1); Sodium 142 mmol/L (136-145)
[2025-01-29 11:37] LABS: #Basophils 0.09 10x3/uL (0.0-0.2); #Eosinophils 0.41 10x3/uL (0.0-0.7); #Monocytes 0.56 10x3/uL (0.11-0.59); #Neutrophils 18.38 10x3/uL (1.40-6.50); %Basophils 0.4 % (0.0-1.0); %Eosinophils 1.9 % (0.0-10.0); %Lymphocytes 6.7 % (21.0-51.0); %Monocytes 2.6 % (0.0-10.0); %Neutrophils 86.3 % (42.0-75.0); Hematocrit 38.7 % (36.0-47.0); Hemoglobin 11.3 g/dL (12.0-16.0); Mean Corpuscular Volume 101.0 fL (78.0-98.0); Platelet Count 207 10x3/uL (130-400); Red Blood Cell (RBC) Count 3.83 mill/uL (4.20-5.40); White Blood Cell (WBC) Count 21.30 10x3/uL (4.8-10.8)
[2025-01-29] MEDS ORDERED: diphenhydrAMINE 25 MG CAP PO PRN (13:15)
[2025-01-29] MEDS ORDERED: diphenhydrAMINE 50 MG/ML VIAL IM/IV PRN (13:15)
[2025-01-29] MEDS ORDERED: Iopamidol-370 76% 500 ML MDV (1 ML CHARGE) ONE (14:05)
[2025-01-29] MEDS: fentaNYL Citrate/PF 55 ML IV SCH (14:05)
[2025-01-29] MEDS: Acetaminophen 325 MG TAB PO SCH (17:57)
[2025-01-29] MEDS: Ketorolac Tromethamine 30 MG (1 mL) VIAL IVP SCH (17:58)
[2025-01-29] MEDS: QUEtiapine 100 MG TAB PO SCH (20:52)
[2025-01-29] MEDS: Pregabalin 50 MG CAP PO SCH (20:52)
[2025-01-30 04:14] LABS: #Basophils 0.05 10x3/uL (0.0-0.2); #Eosinophils 0.70 10x3/uL (0.0-0.7); #Monocytes 0.55 10x3/uL (0.11-0.59); #Neutrophils 14.75 10x3/uL (1.40-6.50); %Basophils 0.3 % (0.0-1.0); %Eosinophils 3.9 % (0.0-10.0); %Lymphocytes 8.5 % (21.0-51.0); %Monocytes 3.1 % (0.0-10.0); %Neutrophils 82.9 % (42.0-75.0); Hematocrit 32.5 % (36.0-47.0); Hemoglobin 9.7 g/dL (12.0-16.0); Mean Corpuscular Hemoglobin 29.0 pg (27.0-31.0); Mean Corpuscular Volume 97.3 fL (78.0-98.0); Platelet Count 229 10x3/uL (130-400); Red Blood Cell (RBC) Count 3.34 mill/uL (4.20-5.40); White Blood Cell (WBC) Count 17.81 10x3/uL (4.8-10.8)
[2025-01-30 04:38] LABS: ALT (SGPT) 10 U/L (Less than 34); AST (SGOT) 18 U/L (11-34); Albumin 1.6 g/dL (3.1-4.5); Alkaline Phosphatase 100 U/L (40-110); Anion Gap 14 mmol/L (10-20); BUN (Urea Nitrogen) 5 mg/dL (9.8-20.1); Bilirubin, Total 0.3 mg/dL (0.3-1.2); Calc. Creatinine Clearance 185 mL/min (70-130); Calcium 6.7 mg/dL (7.8-10.44); Carbon Dioxide 21 mmol/L (23-31); Chloride 108 mmol/L (98-107); Globulin 2.9 g/dL (2.4-3.5); Glucose 100 mg/dL (80-115); Potassium 3.2 mmol/L (3.5-5.1); Sodium 140 mmol/L (136-145)
[2025-01-30] MEDS: Albumin 25% 25 GM (100 mL) BOT IVPB SCH (05:40)
[2025-01-30] MEDS: Potassium Bicarbonate/Cit Ac 20 MEQ TAB PER TUBE SCH ×2 (08:58→19:45)
[2025-01-30] MEDS: GoLYTELY 4,000 ml Bottle PER TUBE SCH (10:49)
[2025-01-30 16:14] LABS: Potassium 3.3 mmol/L (3.5-5.1)
[2025-01-30] MEDS: Furosemide 40 MG (4 mL) VIAL SLOW IVP SCH (19:46)
[2025-01-31 08:13] LABS: #Basophils 0.06 10x3/uL (0.0-0.2); #Eosinophils 0.66 10x3/uL (0.0-0.7); #Monocytes 0.39 10x3/uL (0.11-0.59); #Neutrophils 17.34 10x3/uL (1.40-6.50); %Basophils 0.3 % (0.0-1.0); %Eosinophils 3.3 % (0.0-10.0); %Lymphocytes 6.4 % (21.0-51.0); %Monocytes 2.0 % (0.0-10.0); %Neutrophils 86.9 % (42.0-75.0); Hematocrit 31.6 % (36.0-47.0); Hemoglobin 9.6 g/dL (12.0-16.0); Mean Corpuscular Hemoglobin 29.4 pg (27.0-31.0); Mean Corpuscular Volume 96.6 fL (78.0-98.0); Platelet Count 278 10x3/uL (130-400); Red Blood Cell (RBC) Count 3.27 mill/uL (4.20-5.40); White Blood Cell (WBC) Count 19.93 10x3/uL (4.8-10.8)
[2025-01-31 08:31] LABS: Anion Gap 17 mmol/L (10-20); BUN (Urea Nitrogen) 5 mg/dL (9.8-20.1); Calc. Creatinine Clearance 177 mL/min (70-130); Calcium 7.7 mg/dL (7.8-10.44); Carbon Dioxide 29 mmol/L (23-31); Chloride 104 mmol/L (98-107); Glucose 107 mg/dL (80-115); Potassium 3.5 mmol/L (3.5-5.1); Sodium 146 mmol/L (136-145)
[2025-01-31] MEDS: Potassium Bicarbonate/Cit Ac 20 MEQ TAB PER TUBE SCH (09:19)
[2025-01-31] MEDS: Lansoprazole 30 MG/10 ML UDCUP PER TUBE SCH (09:19)
[2025-01-31] MEDS: Carvedilol 6.25 MG TAB PO SCH ×2 (12:07→17:31)
[2025-01-31 15:18] VITALS: BMI 36.7
[2025-01-31] MEDS: GoLYTELY 4,000 ml Bottle PER TUBE SCH (17:32)
[2025-01-31] MEDS: Furosemide 40 MG (4 mL) VIAL SLOW IVP SCH (18:38)
[2025-01-31] MEDS: Mometasone 200 MCG/Formoterol 5 MCG 120 PUFF INHALER INH SCH (19:11)
[2025-01-31 20:24] LABS: Actual Bicarbonate (HCO3a) 38.0 mEq/L (22-28); Base Excess (BEa) 11.6 mEq/L (-2.0 to +3.0); CO2 Tension 60.0 mmHg (35.0-45.0); Calcium, Ionized (arterial) 0.95 mmol/L (1.12-1.30); Hematocrit-ABG 31 % (36.0-47.0); Hemoglobin (Hb) 10.6 g/dL (12.0-16.0); O2 Tension (PaO2), arterial 97.6 mmHg (> 80.0); Potassium - ABG Lab 3.30 mmol/L (3.70-5.30); pH, Arterial 7.419 (7.35-7.45)
[2025-02-01 05:44] LABS: Anion Gap 15 mmol/L (10-20); BUN (Urea Nitrogen) Less than 4 mg/dL (9.8-20.1); Calc. Creatinine Clearance 203 mL/min (70-130); Calcium 7.5 mg/dL (7.8-10.44); Carbon Dioxide 31 mmol/L (23-31); Chloride 101 mmol/L (98-107); Glucose 97 mg/dL (80-115); Potassium 3.8 mmol/L (3.5-5.1); Sodium 143 mmol/L (136-145)
[2025-02-01 05:49] LABS: #Basophils 0.03 10x3/uL (0.0-0.2); #Eosinophils 0.57 10x3/uL (0.0-0.7); #Monocytes 0.48 10x3/uL (0.11-0.59); #Neutrophils 18.97 10x3/uL (1.40-6.50); %Basophils 0.1 % (0.0-1.0); %Eosinophils 2.6 % (0.0-10.0); %Lymphocytes 5.7 % (21.0-51.0); %Monocytes 2.2 % (0.0-10.0); %Neutrophils 87.9 % (42.0-75.0); Hematocrit 35.3 % (36.0-47.0); Hemoglobin 10.9 g/dL (12.0-16.0); Mean Corpuscular Hemoglobin 29.5 pg (27.0-31.0); Mean Corpuscular Volume 95.4 fL (78.0-98.0); Platelet Count 338 10x3/uL (130-400); Red Blood Cell (RBC) Count 3.70 mill/uL (4.20-5.40); White Blood Cell (WBC) Count 21.59 10x3/uL (4.8-10.8)
[2025-02-01] MEDS: Ondansetron PF 4 MG/2 ML Vial IVP PRN (11:34)
[2025-02-02 03:36] LABS: #Basophils 0.03 10x3/uL (0.0-0.2); #Eosinophils 0.47 10x3/uL (0.0-0.7); #Monocytes 0.44 10x3/uL (0.11-0.59); #Neutrophils 9.61 10x3/uL (1.40-6.50); %Basophils 0.3 % (0.0-1.0); %Eosinophils 3.9 % (0.0-10.0); %Lymphocytes 11.5 % (21.0-51.0); %Monocytes 3.7 % (0.0-10.0); %Neutrophils 80.1 % (42.0-75.0); Hematocrit 29.2 % (36.0-47.0); Hemoglobin 8.7 g/dL (12.0-16.0); Mean Corpuscular Hemoglobin 29.0 pg (27.0-31.0); Mean Corpuscular Volume 97.3 fL (78.0-98.0); Platelet Count 361 10x3/uL (130-400); Red Blood Cell (RBC) Count 3.00 mill/uL (4.20-5.40); White Blood Cell (WBC) Count 11.99 10x3/uL (4.8-10.8)
[2025-02-02 03:53] LABS: Anion Gap 14 mmol/L (10-20); BUN (Urea Nitrogen) Less than 4 mg/dL (9.8-20.1); Calc. Creatinine Clearance 213 mL/min (70-130); Calcium 7.4 mg/dL (7.8-10.44); Carbon Dioxide 31 mmol/L (23-31); Chloride 102 mmol/L (98-107); Glucose 90 mg/dL (80-115); Potassium 2.7 mmol/L (3.5-5.1); Sodium 144 mmol/L (136-145)
[2025-02-02] MEDS: GoLYTELY 4,000 ml Bottle PER TUBE SCH (21:05)
[2025-02-03 01:35] LABS: Potassium 2.9 mmol/L (3.5-5.1)
[2025-02-03 06:43] LABS: Anion Gap 12 mmol/L (10-20); BUN (Urea Nitrogen) Less than 4 mg/dL (9.8-20.1); Calc. Creatinine Clearance 208 mL/min (70-130); Calcium 7.9 mg/dL (7.8-10.44); Carbon Dioxide 35 mmol/L (23-31); Chloride 101 mmol/L (98-107); Glucose 82 mg/dL (80-115); Potassium 3.3 mmol/L (3.5-5.1); Sodium 145 mmol/L (136-145)
[2025-02-03 06:58] LABS: #Basophils 0.05 10x3/uL (0.0-0.2); #Eosinophils 0.39 10x3/uL (0.0-0.7); #Monocytes 0.65 10x3/uL (0.11-0.59); #Neutrophils 7.73 10x3/uL (1.40-6.50); %Basophils 0.5 % (0.0-1.0); %Eosinophils 3.8 % (0.0-10.0); %Lymphocytes 13.9 % (21.0-51.0); %Monocytes 6.3 % (0.0-10.0); %Neutrophils 74.8 % (42.0-75.0); Hematocrit 30.1 % (36.0-47.0); Hemoglobin 9.5 g/dL (12.0-16.0); Mean Corpuscular Hemoglobin 30.1 pg (27.0-31.0); Mean Corpuscular Volume 95.3 fL (78.0-98.0); Platelet Count 471 10x3/uL (130-400); Red Blood Cell (RBC) Count 3.16 mill/uL (4.20-5.40); White Blood Cell (WBC) Count 10.32 10x3/uL (4.8-10.8)
[2025-02-03] MEDS: HYDROcodone/Acetaminophen 5/325 mg Tablet PO PRN (10:34)
[2025-02-03] MEDS: Methocarbamol 500 MG TAB PO PRN (16:49)
[2025-02-03] MEDS: Acetaminophen/Codeine 30-300mg Tablet PO PRN (21:12)
[2025-02-03] MEDS: GoLYTELY 4,000 ml Bottle PER TUBE SCH (22:30)
[2025-02-04] MEDS ORDERED: Acetaminophen 325 MG TAB PO PRN (01:42)
[2025-02-04 06:37] LABS: #Basophils 0.06 10x3/uL (0.0-0.2); #Eosinophils 0.25 10x3/uL (0.0-0.7); #Monocytes 0.63 10x3/uL (0.11-0.59); #Neutrophils 9.76 10x3/uL (1.40-6.50); %Basophils 0.5 % (0.0-1.0); %Eosinophils 2.1 % (0.0-10.0); %Lymphocytes 10.8 % (21.0-51.0); %Monocytes 5.2 % (0.0-10.0); %Neutrophils 80.7 % (42.0-75.0); Hematocrit 30.1 % (36.0-47.0); Hemoglobin 9.5 g/dL (12.0-16.0); Mean Corpuscular Hemoglobin 29.5 pg (27.0-31.0); Mean Corpuscular Volume 93.5 fL (78.0-98.0); Platelet Count 500 10x3/uL (130-400); Red Blood Cell (RBC) Count 3.22 mill/uL (4.20-5.40); White Blood Cell (WBC) Count 12.09 10x3/uL (4.8-10.8)
[2025-02-04 06:51] LABS: Anion Gap 16 mmol/L (10-20); BUN (Urea Nitrogen) Less than 4 mg/dL (9.8-20.1); Calc. Creatinine Clearance 208 mL/min (70-130); Calcium 8.0 mg/dL (7.8-10.44); Carbon Dioxide 31 mmol/L (23-31); Chloride 103 mmol/L (98-107); Glucose 93 mg/dL (80-115); Potassium 3.5 mmol/L (3.5-5.1); Sodium 146 mmol/L (136-145)
[2025-02-04] MEDS: Potassium Bicarbonate/Cit Ac 20 MEQ TAB PO SCH (08:37)
[2025-02-04] MEDS: hydrALAZINE 20 MG/ML VIAL SLOW IVP PRN (14:47)
[2025-02-04 16:12] LABS: Potassium 2.8 mmol/L (3.5-5.1)
[2025-02-04] MEDS ORDERED: Potassium Bicarbonate/Cit Ac 20 MEQ TAB PO SCH (18:00)
[2025-02-05 02:29] LABS: #Basophils 0.08 10x3/uL (0.0-0.2); #Eosinophils 0.12 10x3/uL (0.0-0.7); #Monocytes 0.75 10x3/uL (0.11-0.59); #Neutrophils 10.46 10x3/uL (1.40-6.50); %Basophils 0.6 % (0.0-1.0); %Eosinophils 0.9 % (0.0-10.0); %Lymphocytes 10.9 % (21.0-51.0); %Monocytes 5.8 % (0.0-10.0); %Neutrophils 81.3 % (42.0-75.0); Hematocrit 34.4 % (36.0-47.0); Hemoglobin 10.5 g/dL (12.0-16.0); Mean Corpuscular Hemoglobin 28.9 pg (27.0-31.0); Mean Corpuscular Volume 94.8 fL (78.0-98.0); Platelet Count 613 10x3/uL (130-400); Red Blood Cell (RBC) Count 3.63 mill/uL (4.20-5.40); White Blood Cell (WBC) Count 12.88 10x3/uL (4.8-10.8)
[2025-02-05 03:51] LABS: Anion Gap 16 mmol/L (10-20); BUN (Urea Nitrogen) Less than 4 mg/dL (9.8-20.1); Calc. Creatinine Clearance 225 mL/min (70-130); Calcium 8.4 mg/dL (7.8-10.44); Carbon Dioxide 30 mmol/L (23-31); Chloride 100 mmol/L (98-107); Glucose 105 mg/dL (80-115); Potassium 3.6 mmol/L (3.5-5.1); Sodium 142 mmol/L (136-145)
[2025-02-05 03:55] LABS: Potassium 3.6 mmol/L (3.5-5.1)
[2025-02-05] MEDS ORDERED: Iopamidol-370 76% 500 ML MDV (1 ML CHARGE) ONE (10:54)
[2025-02-05] MEDS: Acetaminophen 325 MG TAB PO SCH (21:31)
[2025-02-06 05:28] LABS: #Basophils 0.09 10x3/uL (0.0-0.2); #Eosinophils 0.26 10x3/uL (0.0-0.7); #Monocytes 0.77 10x3/uL (0.11-0.59); #Neutrophils 8.11 10x3/uL (1.40-6.50); %Basophils 0.8 % (0.0-1.0); %Eosinophils 2.4 % (0.0-10.0); %Lymphocytes 15.4 % (21.0-51.0); %Monocytes 7.0 % (0.0-10.0); %Neutrophils 73.9 % (42.0-75.0); Hematocrit 32.4 % (36.0-47.0); Hemoglobin 10.0 g/dL (12.0-16.0); Mean Corpuscular Hemoglobin 29.2 pg (27.0-31.0); Mean Corpuscular Volume 94.5 fL (78.0-98.0); Platelet Count 621 10x3/uL (130-400); Red Blood Cell (RBC) Count 3.43 mill/uL (4.20-5.40); White Blood Cell (WBC) Count 10.98 10x3/uL (4.8-10.8)
[2025-02-06 05:45] LABS: Anion Gap 15 mmol/L (10-20); BUN (Urea Nitrogen) 4 mg/dL (9.8-20.1); Calc. Creatinine Clearance 185 mL/min (70-130); Calcium 8.1 mg/dL (7.8-10.44); Carbon Dioxide 30 mmol/L (23-31); Chloride 101 mmol/L (98-107); Glucose 150 mg/dL (80-115); Potassium 2.9 mmol/L (3.5-5.1); Sodium 143 mmol/L (136-145)
[2025-02-06 05:48] LABS: ALT (SGPT) Less than 7 U/L (Less than 34); AST (SGOT) 14 U/L (11-34); Albumin 2.3 g/dL (3.1-4.5); Alkaline Phosphatase 86 U/L (40-110); Bilirubin, Direct 0.1 mg/dL (0.1-0.3); Bilirubin, Total 0.2 mg/dL (0.3-1.2)
[2025-02-06] MEDS ORDERED: Non-Formulary Item 1 EACH (Tizanidine Hcl [Tizanidine Hcl] 4 MG Capsule) PO PRN (07:33)
[2025-02-06] MEDS ORDERED: Non-Formulary Item 1 EACH (Pregabalin [Lyrica] 100 MG Cap) PO SCH (09:00)
[2025-02-06] MEDS: Pregabalin 50 MG CAP PO SCH (09:44)
[2025-02-07] MEDS: Morphine IR Tab 15 MG TAB PO PRN (00:51)
[2025-02-07 06:21] LABS: #Basophils 0.12 10x3/uL (0.0-0.2); #Eosinophils 0.32 10x3/uL (0.0-0.7); #Monocytes 1.22 10x3/uL (0.11-0.59); #Neutrophils 9.46 10x3/uL (1.40-6.50); %Basophils 0.9 % (0.0-1.0); %Eosinophils 2.4 % (0.0-10.0); %Lymphocytes 15.2 % (21.0-51.0); %Monocytes 9.2 % (0.0-10.0); %Neutrophils 71.6 % (42.0-75.0); Hematocrit 31.0 % (36.0-47.0); Hemoglobin 9.6 g/dL (12.0-16.0); Mean Corpuscular Hemoglobin 29.2 pg (27.0-31.0); Mean Corpuscular Volume 94.2 fL (78.0-98.0); Platelet Count 601 10x3/uL (130-400); Red Blood Cell (RBC) Count 3.29 mill/uL (4.20-5.40); White Blood Cell (WBC) Count 13.22 10x3/uL (4.8-10.8)
[2025-02-07 06:38] LABS: ALT (SGPT) 11 U/L (Less than 34); AST (SGOT) 37 U/L (11-34); Albumin 2.3 g/dL (3.1-4.5); Alkaline Phosphatase 273 U/L (40-110); Anion Gap 13 mmol/L (10-20); BUN (Urea Nitrogen) 6 mg/dL (9.8-20.1); Bilirubin, Total 0.3 mg/dL (0.3-1.2); Calc. Creatinine Clearance 189 mL/min (70-130); Calcium 8.1 mg/dL (7.8-10.44); Carbon Dioxide 29 mmol/L (23-31); Chloride 106 mmol/L (98-107); Globulin 2.9 g/dL (2.4-3.5); Glucose 87 mg/dL (80-115); Potassium 3.4 mmol/L (3.5-5.1); Sodium 145 mmol/L (136-145)
[2025-02-07] MEDS ORDERED: BUPRENORPHINE HCL 75 MCG SL SCH (08:45)
[2025-02-07] MEDS ORDERED: Albuterol 200 PUFF (6.7GM INHALER) INH PRN (08:47)
[2025-02-07] MEDS ORDERED: Non-Formulary Item 1 EACH (Alendronate Sodium [Alendronate Sodium] 35 MG Tablet) PO SCH (09:00)
[2025-02-07] MEDS: Carvedilol 6.25 MG TAB PO SCH (15:59)
[2025-02-08 05:26] LABS: #Basophils 0.12 10x3/uL (0.0-0.2); #Eosinophils 0.35 10x3/uL (0.0-0.7); #Monocytes 1.12 10x3/uL (0.11-0.59); #Neutrophils 9.29 10x3/uL (1.40-6.50); %Basophils 1.0 % (0.0-1.0); %Eosinophils 2.8 % (0.0-10.0); %Lymphocytes 13.1 % (21.0-51.0); %Monocytes 8.9 % (0.0-10.0); %Neutrophils 73.5 % (42.0-75.0); Hematocrit 28.9 % (36.0-47.0); Hemoglobin 8.7 g/dL (12.0-16.0); Mean Corpuscular Hemoglobin 28.9 pg (27.0-31.0); Mean Corpuscular Volume 96.0 fL (78.0-98.0); Platelet Count 492 10x3/uL (130-400); Red Blood Cell (RBC) Count 3.01 mill/uL (4.20-5.40); White Blood Cell (WBC) Count 12.62 10x3/uL (4.8-10.8)
[2025-02-08 05:55] LABS: ALT (SGPT) Less than 7 U/L (Less than 34); AST (SGOT) 13 U/L (11-34); Albumin 2.2 g/dL (3.1-4.5); Alkaline Phosphatase 193 U/L (40-110); Anion Gap 11 mmol/L (10-20); BUN (Urea Nitrogen) 8 mg/dL (9.8-20.1); Bilirubin, Total 0.2 mg/dL (0.3-1.2); Calc. Creatinine Clearance 177 mL/min (70-130); Calcium 7.8 mg/dL (7.8-10.44); Carbon Dioxide 29 mmol/L (23-31); Chloride 106 mmol/L (98-107); Globulin 2.8 g/dL (2.4-3.5); Glucose 124 mg/dL (80-115); Potassium 3.3 mmol/L (3.5-5.1); Sodium 143 mmol/L (136-145)
[2025-02-08 08:21] VITALS: TEMP 98.5
[2025-02-08 12:05] VITALS: BP 151/80
[2025-02-08] MEDS ORDERED: Non-Formulary Item 1 EACH (Prazosin Hcl [Prazosin Hcl] 2 MG Capsule) PO SCH (21:00)
== END 2025-02-08 14:15 | DRG 853 ==
LOC: ERS 20:42 → CCU 22:23 → IMCU/EMU 01-27 20:57 → SURG B 02-02 20:32
PROVIDERS: ADMIT Colon & Rectal Surgery; ATTEND Colon & Rectal Surgery
PROC: 3E033XZ Introduction of Vasopressor into Peripheral Vein, Percutaneous Approach (ICD-10-PCS; 2025-01-25)
PROC: 4A133R1 Monitoring of Arterial Saturation, Peripheral, Percutaneous Approach (ICD-10-PCS; 2025-01-25)
PROC: 5A1935Z Respiratory Ventilation, Less than 24 Consecutive Hours (ICD-10-PCS; 2025-01-25)
PROC: 0DTN0ZZ Resection of Sigmoid Colon, Open Approach (ICD-10-PCS; principal; 2025-01-26)
PROC: 30233J1 Transfusion of Nonautologous Serum Albumin into Peripheral Vein, Percutaneous Approach (ICD-10-PCS; 2025-01-30)
PROC: 3E03329 Introduction of Other Anti-infective into Peripheral Vein, Percutaneous Approach (ICD-10-PCS; 2025-02-07)
DX: A41.9 Sepsis, unspecified organism (principal); G93.41 Metabolic encephalopathy; J96.01 Acute respiratory failure with hypoxia; R45.851 Suicidal ideations; N17.9 Acute kidney failure, unspecified; K57.80 Diverticulitis of intestine, part unspecified, with perforation and abscess without bleeding; L02.211 Cutaneous abscess of abdominal wall; E87.0 Hyperosmolality and hypernatremia; E87.8 Other disorders of electrolyte and fluid balance, not elsewhere classified; E11.65 Type 2 diabetes mellitus with hyperglycemia; J44.9 Chronic obstructive pulmonary disease, unspecified; Z66 Do not resuscitate; E87.6 Hypokalemia; G47.00 Insomnia, unspecified; F32.A Depression, unspecified; J45.909 Unspecified asthma, uncomplicated; Z90.49 Acquired absence of other specified parts of digestive tract; Z98.84 Bariatric surgery status; Z98.890 Other specified postprocedural states; Z90.710 Acquired absence of both cervix and uterus; Z93.0 Tracheostomy status; Z88.8 Allergy status to other drugs, medicaments and biological substances; Z88.2 Allergy status to sulfonamides; Z87.891 Personal history of nicotine dependence; Z79.82 Long term (current) use of aspirin; Z79.899 Other long term (current) drug therapy
CPT/HCPCS: 36415; 36416; 36600; 71045; 74018; 74177; 80048; 80053; 80076; 80306; 80307; 82140; 82805; 83605; 84484; 85025; 87070; 87077; 87086; 87186; 87205; 88307; 93005; 93010; 94002; 94003; 94640; 94660; 94664; 97139; A4649; B4087; J0360; J1120; J1171; J1650; J1885; J1940; J2250; J2470; J2543; J2550; J2704; J3480; J7030; J7042; J7999; P9045; P9047; Q9967

== ENCOUNTER 2025-03-26 03:37 | Inpatient (IN) | payer MEDICARE ==
[2025-03-26] MEDS ORDERED: Norepinephrine 8 MG/0.9% NS 250 ML ONE ×2 (03:47→10:45)
[2025-03-26 04:01] LABS: Actual Bicarbonate (HCO3a) 23.0 mEq/L (22-28); Analyzer IN Cardio ER; Base Excess (BEa) -3.8 mEq/L (-2.0 to +3.0); CO2 Tension 49.1 mmHg (35.0-45.0); Calcium, Ionized (arterial) 1.16 mmol/L (1.12-1.30); Hematocrit-ABG 38 % (36.0-47.0); Hemoglobin (Hb) 12.9 g/dL (12.0-16.0); O2 Tension (PaO2), arterial 124.3 mmHg (> 80.0); Potassium - ABG Lab 4.19 mmol/L (3.70-5.30); pH, Arterial 7.289 (7.35-7.45)
[2025-03-26] MEDS ORDERED: Magnesium 2 GM/50 ML BAG (IN WATER) ONE (04:05)
[2025-03-26] MEDS ORDERED: Ketorolac Tromethamine 30 MG (1 mL) VIAL ONE (04:36)
[2025-03-26 04:37] LABS: Cocaine Metabolite Screen Negative (Negative); THC/Cannabinoid Screen Negative (Negative); Tricyclic Screen PRELIM POSITIVE (Negative)
[2025-03-26 04:39] LABS: Lipase 6 U/L (8-78); Magnesium 1.9 mg/dL (1.6-2.6)
[2025-03-26 04:40] LABS: Acetaminophen Less than 10 mcg/mL (Less than 10); Salicylate Less than 8.0 mg/dL (Less than 8.0)
[2025-03-26 04:41] LABS: ALT (SGPT) 13 U/L (Less than 34); AST (SGOT) 29 U/L (11-34); Albumin 3.4 g/dL (3.1-4.5); Alkaline Phosphatase 115 U/L (40-110); Anion Gap 16 mmol/L (10-20); BUN (Urea Nitrogen) 21 mg/dL (9.8-20.1); Bilirubin, Total 0.5 mg/dL (0.3-1.2); Calc. Creatinine Clearance 0 mL/min (70-130); Calcium 8.9 mg/dL (7.8-10.44); Carbon Dioxide 24 mmol/L (23-31); Chloride 103 mmol/L (98-107); Globulin 3.2 g/dL (2.4-3.5); Glucose 96 mg/dL (80-115); Potassium 4.5 mmol/L (3.5-5.1); Sodium 138 mmol/L (136-145)
[2025-03-26 04:48] LABS: Bacteria/HPF None Seen HPF (None Seen); CAUTI Indications for Culture Dysuria,urgency,freq; Glucose, Urine (Dipstick) Normal (Negative); Leukocyte 25 Leu/uL (Negative); Protein, Urine (Dipstick) Negative (Neg-Trace); RBC/HPF 0-3 HPF (0-3); Specific Gravity, Urine 1.008 (1.002-1.036); WBC/HPF 0-3 HPF (0-3)
[2025-03-26 04:58] LABS: Hematocrit 43.5 % (36.0-47.0); Hemoglobin 13.5 g/dL (12.0-16.0); Mean Corpuscular Hemoglobin 28.8 pg (27.0-31.0); Mean Corpuscular Volume 92.8 fL (78.0-98.0); Platelet Count 323 10x3/uL (130-400); Red Blood Cell (RBC) Count 4.69 mill/uL (4.20-5.40); White Blood Cell (WBC) Count 0.84 10x3/uL (4.8-10.8)
[2025-03-26 05:03] LABS: Urine Culture Reflex No No
[2025-03-26 05:26] LABS: #Basophils Less than 0.03 10x3/uL (0.0-0.2); #Eosinophils 0.03 10x3/uL (0.0-0.7); #Monocytes 0.07 10x3/uL (0.11-0.59); #Neutrophils 0.39 10x3/uL (1.40-6.50); %Basophils 1.2 % (0.0-1.0); %Eosinophils 3.6 % (0.0-10.0); %Lymphocytes 40.5 % (21.0-51.0); %Monocytes 8.3 % (0.0-10.0); %Neutrophils 46.4 % (42.0-75.0); Platelet Adequacy Comment Platelets Normal; RBC Morphology Within Normal Limits; Reflex for Review?? YES
[2025-03-26] MEDS ORDERED: cefTRIAXone (ROCEPHIN) 2 GM VIAL ONE (05:35)
[2025-03-26] MEDS ORDERED: Vancomycin 1 GM/200 ML (FROZEN) BAG ONE ×2 (05:53→10:02)
[2025-03-26 07:35] VITALS: BMI 35.3
[2025-03-26] MEDS ORDERED: Cefepime 2 GM VIAL ONE (08:52)
[2025-03-26] MEDS ORDERED: Enoxaparin 40 MG (0.4 mL) SYRINGE ONE (08:53)
[2025-03-26] MEDS ORDERED: Famotidine/PF 20 mg/2ml Vial ONE (08:53)
[2025-03-26] MEDS: Famotidine/PF 20 mg/2ml Vial SLOW IVP SCH (09:21)
[2025-03-26] MEDS: Enoxaparin 40 MG (0.4 mL) SYRINGE SC SCH (09:27)
[2025-03-26] MEDS: Vancomycin 1 GM in Premix 1 BAG IVPB SCH (10:25)
[2025-03-26] MEDS ORDERED: Iopamidol 370 76% 100 ML VIAL ONE (11:41)
[2025-03-26] MEDS ORDERED: Fentanyl BOLUS 100 ML IVPB PRN (13:45)
[2025-03-26] MEDS ORDERED: Propofol BOLUS 1,000 MG/100 ML VIAL IV PRN (13:45)
[2025-03-26] MEDS ORDERED: DISCONTINUE PREVIOUS NARCOTIC PAIN MEDICATIONS AND BENZODIAZEPINES FS SCH (13:45)
[2025-03-26 14:18] LABS: Actual Bicarbonate (HCO3a) 18.5 mEq/L (22-28); Base Excess (BEa) -7.4 mEq/L (-2.0 to +3.0); CO2 Tension 38.9 mmHg (35.0-45.0); Calcium, Ionized (arterial) 1.08 mmol/L (1.12-1.30); Hematocrit-ABG 32 % (36.0-47.0); Hemoglobin (Hb) 11.0 g/dL (12.0-16.0); O2 Tension (PaO2), arterial 133.8 mmHg (> 80.0); Potassium - ABG Lab 4.11 mmol/L (3.70-5.30); pH, Arterial 7.295 (7.35-7.45)
[2025-03-26 14:21] LABS: Puncture Site Arterial Line
[2025-03-26] MEDS: Ventilator Sedation Protocol 1 EACH FS ONE (14:56)
[2025-03-26] MEDS: Norepinephrine 8 MG/0.9% NS 250 ML ONE (14:56)
[2025-03-26 17:43] LABS: Anion Gap 13 mmol/L (10-20); BUN (Urea Nitrogen) 17 mg/dL (9.8-20.1); Calc. Creatinine Clearance 123 mL/min (70-130); Calcium 7.3 mg/dL (7.8-10.44); Carbon Dioxide 18 mmol/L (23-31); Chloride 114 mmol/L (98-107); Glucose 108 mg/dL (80-115); Potassium 4.3 mmol/L (3.5-5.1); Sodium 141 mmol/L (136-145)
[2025-03-26] MEDS: Hydrocortisone Sod Succ/PF 100 mg/2 ml Vial IVP SCH ×2 (17:55→23:46)
[2025-03-26] MEDS: Mupirocin 1 GM TUBE TP SCH (20:00)
[2025-03-26] MEDS: Norepinephrine 8 MG/0.9% NS 250 ML IVPB SCH (20:54)
[2025-03-27 04:23] LABS: Hematocrit 32.5 % (36.0-47.0); Hemoglobin 10.1 g/dL (12.0-16.0); Mean Corpuscular Hemoglobin 29.1 pg (27.0-31.0); Mean Corpuscular Volume 93.7 fL (78.0-98.0); Platelet Count 299 10x3/uL (130-400); Red Blood Cell (RBC) Count 3.47 mill/uL (4.20-5.40); White Blood Cell (WBC) Count 12.22 10x3/uL (4.8-10.8)
[2025-03-27 04:42] LABS: Vancomycin, Random 8.6 ug/mL (See Comment)
[2025-03-27 04:43] LABS: ALT (SGPT) 9 U/L (Less than 34); AST (SGOT) 16 U/L (11-34); Albumin 2.5 g/dL (3.1-4.5); Alkaline Phosphatase 78 U/L (40-110); Anion Gap 15 mmol/L (10-20); BUN (Urea Nitrogen) 16 mg/dL (9.8-20.1); Bilirubin, Total 0.4 mg/dL (0.3-1.2); Calc. Creatinine Clearance 128 mL/min (70-130); Calcium 7.4 mg/dL (7.8-10.44); Carbon Dioxide 19 mmol/L (23-31); Chloride 117 mmol/L (98-107); Globulin 2.6 g/dL (2.4-3.5); Glucose 144 mg/dL (80-115); Potassium 3.8 mmol/L (3.5-5.1); Sodium 147 mmol/L (136-145)
[2025-03-27 04:57] LABS: Platelet Adequacy Comment Platelets Normal; Polychromasia SLIGHT = 2-3 cells HPF (0-2)
[2025-03-27 07:22] LABS: Actual Bicarbonate (HCO3a) 19.4 mEq/L (22-28); Base Excess (BEa) -5.4 mEq/L (-2.0 to +3.0); CO2 Tension 35.3 mmHg (35.0-45.0); Calcium, Ionized (arterial) 1.05 mmol/L (1.12-1.30); Hematocrit-ABG 31 % (36.0-47.0); Hemoglobin (Hb) 10.7 g/dL (12.0-16.0); O2 Tension (PaO2), arterial 95.9 mmHg (> 80.0); Potassium - ABG Lab 3.86 mmol/L (3.70-5.30); pH, Arterial 7.359 (7.35-7.45)
[2025-03-27 07:23] LABS: Puncture Site Arterial Line
[2025-03-27] MEDS: Vancomycin 1 GM in Premix 1 BAG IVPB SCH (07:50)
[2025-03-28 04:41] LABS: Hematocrit 31.7 % (36.0-47.0); Hemoglobin 9.5 g/dL (12.0-16.0); Mean Corpuscular Hemoglobin 29.0 pg (27.0-31.0); Mean Corpuscular Volume 96.6 fL (78.0-98.0); Platelet Count 254 10x3/uL (130-400); Red Blood Cell (RBC) Count 3.28 mill/uL (4.20-5.40); White Blood Cell (WBC) Count 12.57 10x3/uL (4.8-10.8)
[2025-03-28 04:52] LABS: Vancomycin, Random 15.1 ug/mL (See Comment)
[2025-03-28 04:54] LABS: Anion Gap 10 mmol/L (10-20); BUN (Urea Nitrogen) 17 mg/dL (9.8-20.1); Calc. Creatinine Clearance 173 mL/min (70-130); Calcium 7.3 mg/dL (7.8-10.44); Carbon Dioxide 20 mmol/L (23-31); Chloride 118 mmol/L (98-107); Glucose 142 mg/dL (80-115); Potassium 3.6 mmol/L (3.5-5.1); Sodium 144 mmol/L (136-145)
[2025-03-28 05:20] LABS: Burr Cells SLIGHT = 2-5 cells HPF (0-1); Platelet Adequacy Comment Platelets Normal; Smudge Cells 6.8 %
[2025-03-28 07:11] LABS: Actual Bicarbonate (HCO3a) 18.6 mEq/L (22-28); Base Excess (BEa) -6.6 mEq/L (-2.0 to +3.0); CO2 Tension 35.9 mmHg (35.0-45.0); Calcium, Ionized (arterial) 1.03 mmol/L (1.12-1.30); Hematocrit-ABG 31 % (36.0-47.0); Hemoglobin (Hb) 10.6 g/dL (12.0-16.0); O2 Tension (PaO2), arterial 93.9 mmHg (> 80.0); Potassium - ABG Lab 3.72 mmol/L (3.70-5.30); pH, Arterial 7.333 (7.35-7.45)
[2025-03-28 07:12] LABS: ALV-art Gradient 146.425 mmHg (0-20); Puncture Site Arterial Line
[2025-03-28] MEDS: Acetaminophen 325 MG TAB PO PRN (15:22)
[2025-03-28] MEDS: QUEtiapine 100 MG TAB PO PRN (20:25)
[2025-03-28] MEDS: Carvedilol 6.25 MG TAB PO SCH (20:28)
[2025-03-28] MEDS: Furosemide 40 MG (4 mL) VIAL SLOW IVP SCH (23:38)
[2025-03-28] MEDS: Sodium Bicarb 50 MEQ/50 ML Abboject 8.4% SYRINGE IVP SCH (23:52)
[2025-03-29 00:23] LABS: Anion Gap 13 mmol/L (10-20); BUN (Urea Nitrogen) 20 mg/dL (9.8-20.1); Calc. Creatinine Clearance 146 mL/min (70-130); Calcium 7.3 mg/dL (7.8-10.44); Carbon Dioxide 17 mmol/L (23-31); Chloride 119 mmol/L (98-107); Glucose 153 mg/dL (80-115); Potassium 3.8 mmol/L (3.5-5.1); Sodium 145 mmol/L (136-145)
[2025-03-29 03:47] LABS: #Basophils 0.05 10x3/uL (0.0-0.2); #Eosinophils 0.11 10x3/uL (0.0-0.7); #Monocytes 0.53 10x3/uL (0.11-0.59); #Neutrophils 19.37 10x3/uL (1.40-6.50); %Basophils 0.2 % (0.0-1.0); %Eosinophils 0.5 % (0.0-10.0); %Lymphocytes 5.2 % (21.0-51.0); %Monocytes 2.5 % (0.0-10.0); %Neutrophils 91.2 % (42.0-75.0); Hematocrit 37.2 % (36.0-47.0); Hemoglobin 11.4 g/dL (12.0-16.0); Mean Corpuscular Hemoglobin 28.5 pg (27.0-31.0); Mean Corpuscular Volume 93.0 fL (78.0-98.0); Platelet Count 269 10x3/uL (130-400); Red Blood Cell (RBC) Count 4.00 mill/uL (4.20-5.40); White Blood Cell (WBC) Count 21.25 10x3/uL (4.8-10.8)
[2025-03-29 04:01] LABS: Anion Gap 14 mmol/L (10-20); BUN (Urea Nitrogen) 21 mg/dL (9.8-20.1); Calc. Creatinine Clearance 134 mL/min (70-130); Calcium 7.6 mg/dL (7.8-10.44); Carbon Dioxide 20 mmol/L (23-31); Chloride 118 mmol/L (98-107); Glucose 167 mg/dL (80-115); Potassium 3.3 mmol/L (3.5-5.1); Sodium 149 mmol/L (136-145)
[2025-03-29 07:12] LABS: Actual Bicarbonate (HCO3a) 20.2 mEq/L (22-28); Base Excess (BEa) -2.9 mEq/L (-2.0 to +3.0); CO2 Tension 30.0 mmHg (35.0-45.0); Calcium, Ionized (arterial) 1.08 mmol/L (1.12-1.30); Hematocrit-ABG 35 % (36.0-47.0); Hemoglobin (Hb) 12.0 g/dL (12.0-16.0); O2 Tension (PaO2), arterial 61.7 mmHg (> 80.0); Potassium - ABG Lab 3.19 mmol/L (3.70-5.30); pH, Arterial 7.446 (7.35-7.45)
[2025-03-29] MEDS: Carvedilol 6.25 MG TAB PO SCH (07:12)
[2025-03-29 07:13] LABS: Puncture Site Right Radial artery
[2025-03-29] MEDS: Vancomycin 1 GM in Premix 1 BAG IVPB SCH (11:11)
[2025-03-29] MEDS: Hydrocortisone Sod Succ/PF 100 mg/2 ml Vial IVP SCH (16:58)
[2025-03-29] MEDS ORDERED: Hydrocortisone Sod Succ/PF 100 mg/2 ml Vial IVP SCH (18:00)
[2025-03-29] MEDS: Enoxaparin 40 MG (0.4 mL) SYRINGE SC SCH (20:22)
[2025-03-30] MEDS: Bacteriostatic Water 30 ML VIAL FS SCH (02:51)
[2025-03-30 04:09] LABS: #Basophils 0.05 10x3/uL (0.0-0.2); #Eosinophils 0.04 10x3/uL (0.0-0.7); #Monocytes 0.77 10x3/uL (0.11-0.59); #Neutrophils 15.52 10x3/uL (1.40-6.50); %Basophils 0.3 % (0.0-1.0); %Eosinophils 0.2 % (0.0-10.0); %Lymphocytes 10.6 % (21.0-51.0); %Monocytes 4.0 % (0.0-10.0); %Neutrophils 81.5 % (42.0-75.0); Hematocrit 33.8 % (36.0-47.0); Hemoglobin 10.3 g/dL (12.0-16.0); Mean Corpuscular Hemoglobin 28.6 pg (27.0-31.0); Mean Corpuscular Volume 93.9 fL (78.0-98.0); Platelet Count 259 10x3/uL (130-400); Red Blood Cell (RBC) Count 3.60 mill/uL (4.20-5.40); White Blood Cell (WBC) Count 19.04 10x3/uL (4.8-10.8)
[2025-03-30 04:22] LABS: Anion Gap 13 mmol/L (10-20); BUN (Urea Nitrogen) 21 mg/dL (9.8-20.1); Calc. Creatinine Clearance 150 mL/min (70-130); Calcium 7.5 mg/dL (7.8-10.44); Carbon Dioxide 23 mmol/L (23-31); Chloride 117 mmol/L (98-107); Glucose 151 mg/dL (80-115); Potassium 3.1 mmol/L (3.5-5.1); Sodium 150 mmol/L (136-145); Vancomycin, Random 17.8 ug/mL (See Comment)
[2025-03-30] MEDS ORDERED: Electrolyte Replacement Protocol 1 EACH FS SCH (06:00)
[2025-03-30] MEDS ORDERED: Magnesium 2 GM/50 ML(in water) 2 GM in Premix 1 BAG IVPB PRN (06:15)
[2025-03-30] MEDS ORDERED: PHOS-NAK 1 PKT PACK PO PRN (06:15)
[2025-03-30] MEDS: Potassium Chloride 40 MEQ in Premix 1 BAG IVPB PRN (06:19)
[2025-03-30] MEDS ORDERED: PHOS-NAK 1 PKT PACK PER TUBE PRN (07:57)
[2025-03-30] MEDS ORDERED: QUEtiapine 100 MG TAB PER TUBE PRN (07:59)
[2025-03-30] MEDS: Carvedilol 6.25 MG TAB PER TUBE SCH (09:09)
[2025-03-30 11:11] LABS: Magnesium 2.2 mg/dL (1.6-2.6)
[2025-03-30] MEDS: Vancomycin 1 GM in Premix 1 BAG IVPB SCH ×2 (11:54→21:14)
[2025-03-30 12:21] LABS: Potassium 3.5 mmol/L (3.5-5.1)
[2025-03-30] MEDS: Dexamethasone 10 MG/ML VIAL SLOW IVP SCH (21:13)
[2025-03-31 04:01] LABS: Hematocrit 35.3 % (36.0-47.0); Hemoglobin 10.5 g/dL (12.0-16.0); Mean Corpuscular Hemoglobin 28.1 pg (27.0-31.0); Mean Corpuscular Volume 94.4 fL (78.0-98.0); Platelet Count 239 10x3/uL (130-400); Red Blood Cell (RBC) Count 3.74 mill/uL (4.20-5.40); White Blood Cell (WBC) Count 15.21 10x3/uL (4.8-10.8)
[2025-03-31] MEDS: hydrALAZINE 20 MG/ML VIAL SLOW IVP PRN (04:06)
[2025-03-31 04:14] LABS: Anion Gap 12 mmol/L (10-20); BUN (Urea Nitrogen) 15 mg/dL (9.8-20.1); Calc. Creatinine Clearance 189 mL/min (70-130); Calcium 7.9 mg/dL (7.8-10.44); Carbon Dioxide 23 mmol/L (23-31); Chloride 114 mmol/L (98-107); Glucose 160 mg/dL (80-115); Potassium 4.4 mmol/L (3.5-5.1); Sodium 145 mmol/L (136-145)
[2025-03-31 04:24] LABS: Nucleated RBC (Manual Ct) 1 % (0); Platelet Adequacy Comment Platelets Normal; Polychromasia SLIGHT = 2-3 cells HPF (0-2); Smudge Cells 8.9 %
[2025-03-31 06:40] LABS: Actual Bicarbonate (HCO3a) 23.9 mEq/L (22-28); Base Excess (BEa) 0.9 mEq/L (-2.0 to +3.0); CO2 Tension 32.3 mmHg (35.0-45.0); Calcium, Ionized (arterial) 1.07 mmol/L (1.12-1.30); Hematocrit-ABG 31 % (36.0-47.0); Hemoglobin (Hb) 10.4 g/dL (12.0-16.0); O2 Tension (PaO2), arterial 78.0 mmHg (> 80.0); Potassium - ABG Lab 3.96 mmol/L (3.70-5.30); pH, Arterial 7.487 (7.35-7.45)
[2025-03-31 06:41] LABS: Puncture Site Right Radial artery
[2025-03-31 06:42] LABS: ALV-art Gradient 309.425 mmHg (0-20)
[2025-04-01 03:07] LABS: Hematocrit 32.3 % (36.0-47.0); Hemoglobin 10.0 g/dL (12.0-16.0); Mean Corpuscular Hemoglobin 28.7 pg (27.0-31.0); Mean Corpuscular Volume 92.8 fL (78.0-98.0); Platelet Count 243 10x3/uL (130-400); Red Blood Cell (RBC) Count 3.48 mill/uL (4.20-5.40); White Blood Cell (WBC) Count 16.88 10x3/uL (4.8-10.8)
[2025-04-01 03:35] LABS: Platelet Adequacy Comment Platelets Normal; RBC Morphology Within Normal Limits; Smudge Cells 10.0 %
[2025-04-01 03:48] LABS: Vancomycin, Random 14.9 ug/mL (See Comment)
[2025-04-01 03:49] LABS: Anion Gap 12 mmol/L (10-20); BUN (Urea Nitrogen) 21 mg/dL (9.8-20.1); Calc. Creatinine Clearance 226 mL/min (70-130); Calcium 7.7 mg/dL (7.8-10.44); Carbon Dioxide 24 mmol/L (23-31); Chloride 112 mmol/L (98-107); Glucose 177 mg/dL (80-115); Potassium 4.0 mmol/L (3.5-5.1); Sodium 144 mmol/L (136-145)
[2025-04-01] MEDS: Vancomycin (BATCH) 1.25 GM in Premix 1 BAG IVPB SCH (09:17)
[2025-04-01] MEDS: Vancomycin HCl 1.25 GM in Sodium Chloride 0.9% 250 ML 250 ML IVPB SCH (21:36)
[2025-04-02 04:57] LABS: Hematocrit 33.2 % (36.0-47.0); Hemoglobin 10.0 g/dL (12.0-16.0); Mean Corpuscular Hemoglobin 28.4 pg (27.0-31.0); Mean Corpuscular Volume 94.3 fL (78.0-98.0); Platelet Count 277 10x3/uL (130-400); Red Blood Cell (RBC) Count 3.52 mill/uL (4.20-5.40); White Blood Cell (WBC) Count 17.90 10x3/uL (4.8-10.8)
[2025-04-02 05:07] LABS: Vancomycin, Random 19.0 ug/mL (See Comment)
[2025-04-02 05:15] LABS: Anion Gap 11 mmol/L (10-20); BUN (Urea Nitrogen) 25 mg/dL (9.8-20.1); Calc. Creatinine Clearance 239 mL/min (70-130); Calcium 7.6 mg/dL (7.8-10.44); Carbon Dioxide 25 mmol/L (23-31); Chloride 111 mmol/L (98-107); Glucose 163 mg/dL (80-115); Potassium 4.4 mmol/L (3.5-5.1); Sodium 143 mmol/L (136-145)
[2025-04-02 05:25] LABS: Platelet Adequacy Comment Platelets Normal; Polychromasia SLIGHT = 2-3 cells HPF (0-2); Smudge Cells 6.9 %
[2025-04-02] MEDS: Furosemide 40 MG (4 mL) VIAL SLOW IVP SCH (10:59)
[2025-04-02] MEDS: Vancomycin HCl 1.25 GM in Sodium Chloride 0.9% 250 ML 250 ML IVPB SCH (11:10)
[2025-04-03 04:08] LABS: Anion Gap 15 mmol/L (10-20); BUN (Urea Nitrogen) 22 mg/dL (9.8-20.1); Calc. Creatinine Clearance 192 mL/min (70-130); Calcium 7.6 mg/dL (7.8-10.44); Carbon Dioxide 25 mmol/L (23-31); Chloride 104 mmol/L (98-107); Glucose 137 mg/dL (80-115); Potassium 4.1 mmol/L (3.5-5.1); Sodium 140 mmol/L (136-145)
[2025-04-03 05:39] LABS: Hematocrit 38.6 % (36.0-47.0); Hemoglobin 12.5 g/dL (12.0-16.0); Mean Corpuscular Hemoglobin 28.9 pg (27.0-31.0); Mean Corpuscular Volume 89.4 fL (78.0-98.0); Platelet Count 376 10x3/uL (130-400); Red Blood Cell (RBC) Count 4.32 mill/uL (4.20-5.40); White Blood Cell (WBC) Count 25.96 10x3/uL (4.8-10.8)
[2025-04-03 06:10] LABS: Platelet Adequacy Comment Platelets Normal; RBC Morphology Within Normal Limits; Smudge Cells 16.0 %
[2025-04-03] MEDS ORDERED: Famotidine 20 MG TAB PO SCH (09:00)
[2025-04-03] MEDS: Famotidine 20 MG TAB PER TUBE SCH (09:32)
[2025-04-03] MEDS: QUEtiapine 25 MG TAB PO SCH (09:32)
[2025-04-03] MEDS: Midazolam In 0.9 % NaCl/PF 100 ML IV SCH (09:49)
[2025-04-03] MEDS: QUEtiapine 25 MG TAB PER TUBE SCH ×2 (17:51→20:46)
[2025-04-04] MEDS: Norepinephrine 8 MG/0.9% NS 0 ML ONE (00:41)
[2025-04-04 03:52] LABS: Anion Gap 11 mmol/L (10-20); BUN (Urea Nitrogen) 21 mg/dL (9.8-20.1); Calc. Creatinine Clearance 219 mL/min (70-130); Calcium 7.4 mg/dL (7.8-10.44); Carbon Dioxide 29 mmol/L (23-31); Chloride 102 mmol/L (98-107); Glucose 143 mg/dL (80-115); Potassium 4.0 mmol/L (3.5-5.1); Sodium 138 mmol/L (136-145)
[2025-04-04 04:08] LABS: #Basophils Less than 0.03 10x3/uL (0.0-0.2); #Eosinophils Less than 0.03 10x3/uL (0.0-0.7); #Monocytes 0.21 10x3/uL (0.11-0.59); #Neutrophils 9.71 10x3/uL (1.40-6.50); %Basophils 0.2 % (0.0-1.0); %Eosinophils 0.0 % (0.0-10.0); %Lymphocytes 9.9 % (21.0-51.0); %Monocytes 1.9 % (0.0-10.0); %Neutrophils 85.4 % (42.0-75.0); Hematocrit 37.6 % (36.0-47.0); Hemoglobin 12.0 g/dL (12.0-16.0); Mean Corpuscular Hemoglobin 28.7 pg (27.0-31.0); Mean Corpuscular Volume 90.0 fL (78.0-98.0); Platelet Count 51 10x3/uL (130-400); Red Blood Cell (RBC) Count 4.18 mill/uL (4.20-5.40); White Blood Cell (WBC) Count 11.35 10x3/uL (4.8-10.8)
[2025-04-04 04:58] LABS: Anisocytosis SLIGHT = 6-15 cells HPF (0-5); Burr Cells MODERATE= 6-15 cells HPF (0-1); Platelet Adequacy Comment Platelets Decreased; Poikilocytosis SLIGHT = 6-15 cells HPF (0-5)
[2025-04-04] MEDS: Furosemide 40 MG (4 mL) VIAL IVP SCH (06:11)
[2025-04-04] MEDS: Senokot S 8.6-50 MG TAB PO SCH (21:20)
[2025-04-04] MEDS: Ondansetron PF 4 MG/2 ML Vial IVP PRN (22:04)
[2025-04-04] MEDS: diphenhydrAMINE 50 MG/ML VIAL IVP SCH (22:36)
[2025-04-05 07:14] LABS: #Basophils 0.03 10x3/uL (0.0-0.2); #Eosinophils 0.10 10x3/uL (0.0-0.7); #Monocytes 0.66 10x3/uL (0.11-0.59); #Neutrophils 13.53 10x3/uL (1.40-6.50); %Basophils 0.2 % (0.0-1.0); %Eosinophils 0.6 % (0.0-10.0); %Lymphocytes 15.9 % (21.0-51.0); %Monocytes 3.8 % (0.0-10.0); %Neutrophils 78.2 % (42.0-75.0); Hematocrit 33.7 % (36.0-47.0); Hemoglobin 10.3 g/dL (12.0-16.0); Mean Corpuscular Hemoglobin 28.4 pg (27.0-31.0); Mean Corpuscular Volume 92.8 fL (78.0-98.0); Platelet Count 328 10x3/uL (130-400); Red Blood Cell (RBC) Count 3.63 mill/uL (4.20-5.40); White Blood Cell (WBC) Count 17.31 10x3/uL (4.8-10.8)
[2025-04-05 07:28] LABS: Anion Gap 11 mmol/L (10-20); BUN (Urea Nitrogen) 18 mg/dL (9.8-20.1); Calc. Creatinine Clearance 217 mL/min (70-130); Calcium 7.3 mg/dL (7.8-10.44); Carbon Dioxide 29 mmol/L (23-31); Chloride 103 mmol/L (98-107); Glucose 89 mg/dL (80-115); Potassium 3.2 mmol/L (3.5-5.1); Sodium 140 mmol/L (136-145)
[2025-04-05] MEDS: Potassium Chloride 20 MEQ in Premix 1 BAG IVPB PRN (07:49)
[2025-04-05] MEDS: Dexamethasone 10 MG/ML VIAL SLOW IVP SCH (20:49)
[2025-04-05 23:23] LABS: Potassium 4.1 mmol/L (3.5-5.1)
[2025-04-06] MEDS: Melatonin 3 MG TAB PO SCH (03:15)
[2025-04-06 04:21] LABS: #Basophils Less than 0.03 10x3/uL (0.0-0.2); #Eosinophils Less than 0.03 10x3/uL (0.0-0.7); #Monocytes 0.36 10x3/uL (0.11-0.59); #Neutrophils 12.04 10x3/uL (1.40-6.50); %Basophils 0.1 % (0.0-1.0); %Eosinophils 0.1 % (0.0-10.0); %Lymphocytes 7.0 % (21.0-51.0); %Monocytes 2.7 % (0.0-10.0); %Neutrophils 89.0 % (42.0-75.0); Hematocrit 34.8 % (36.0-47.0); Hemoglobin 10.7 g/dL (12.0-16.0); Mean Corpuscular Hemoglobin 28.0 pg (27.0-31.0); Mean Corpuscular Volume 91.1 fL (78.0-98.0); Platelet Count 378 10x3/uL (130-400); Red Blood Cell (RBC) Count 3.82 mill/uL (4.20-5.40); White Blood Cell (WBC) Count 13.54 10x3/uL (4.8-10.8)
[2025-04-06 04:37] LABS: Anion Gap 13 mmol/L (10-20); BUN (Urea Nitrogen) 11 mg/dL (9.8-20.1); Calc. Creatinine Clearance 217 mL/min (70-130); Calcium 8.0 mg/dL (7.8-10.44); Carbon Dioxide 25 mmol/L (23-31); Chloride 106 mmol/L (98-107); Glucose 130 mg/dL (80-115); Potassium 4.2 mmol/L (3.5-5.1); Sodium 140 mmol/L (136-145)
[2025-04-06] MEDS: predniSONE 20 MG TAB PO SCH (12:00)
[2025-04-06] MEDS ORDERED: PHOS-NAK 1 PKT PACK PO PRN (19:29)
[2025-04-06] MEDS: Pregabalin 50 MG CAP PO SCH (21:21)
[2025-04-07] MEDS: Carvedilol 6.25 MG TAB PO SCH (09:14)
[2025-04-08 04:52] LABS: #Basophils Less than 0.03 10x3/uL (0.0-0.2); #Eosinophils Less than 0.03 10x3/uL (0.0-0.7); #Monocytes 0.60 10x3/uL (0.11-0.59); #Neutrophils 7.59 10x3/uL (1.40-6.50); %Basophils 0.1 % (0.0-1.0); %Eosinophils 0.1 % (0.0-10.0); %Lymphocytes 15.3 % (21.0-51.0); %Monocytes 6.1 % (0.0-10.0); %Neutrophils 77.7 % (42.0-75.0); Hematocrit 33.2 % (36.0-47.0); Hemoglobin 10.3 g/dL (12.0-16.0); Mean Corpuscular Hemoglobin 28.7 pg (27.0-31.0); Mean Corpuscular Volume 92.5 fL (78.0-98.0); Platelet Count 433 10x3/uL (130-400); Red Blood Cell (RBC) Count 3.59 mill/uL (4.20-5.40); White Blood Cell (WBC) Count 9.78 10x3/uL (4.8-10.8)
[2025-04-08 05:08] LABS: ALT (SGPT) 19 U/L (Less than 34); AST (SGOT) 14 U/L (11-34); Albumin 2.8 g/dL (3.1-4.5); Alkaline Phosphatase 70 U/L (40-110); Anion Gap 11 mmol/L (10-20); BUN (Urea Nitrogen) 12 mg/dL (9.8-20.1); Bilirubin, Total 0.4 mg/dL (0.3-1.2); Calc. Creatinine Clearance 191 mL/min (70-130); Calcium 8.1 mg/dL (7.8-10.44); Carbon Dioxide 28 mmol/L (23-31); Chloride 106 mmol/L (98-107); Globulin 2.7 g/dL (2.4-3.5); Glucose 113 mg/dL (80-115); Magnesium 2.6 mg/dL (1.6-2.6); Potassium 3.8 mmol/L (3.5-5.1); Sodium 141 mmol/L (136-145)
[2025-04-08] MEDS: predniSONE 20 MG TAB PO SCH (09:38)
[2025-04-08] MEDS: Acetaminophen 325 MG TAB ONE (10:38)
[2025-04-08] MEDS: Acetaminophen 325 MG TAB PER TUBE PRN (16:50)
[2025-04-09 05:37] LABS: #Basophils 0.03 10x3/uL (0.0-0.2); #Eosinophils 0.11 10x3/uL (0.0-0.7); #Monocytes 1.07 10x3/uL (0.11-0.59); #Neutrophils 9.58 10x3/uL (1.40-6.50); %Basophils 0.2 % (0.0-1.0); %Eosinophils 0.8 % (0.0-10.0); %Lymphocytes 17.2 % (21.0-51.0); %Monocytes 8.1 % (0.0-10.0); %Neutrophils 72.9 % (42.0-75.0); Hematocrit 36.1 % (36.0-47.0); Hemoglobin 11.0 g/dL (12.0-16.0); Mean Corpuscular Hemoglobin 28.6 pg (27.0-31.0); Mean Corpuscular Volume 94.0 fL (78.0-98.0); Platelet Count 412 10x3/uL (130-400); Red Blood Cell (RBC) Count 3.84 mill/uL (4.20-5.40); White Blood Cell (WBC) Count 13.16 10x3/uL (4.8-10.8)
[2025-04-09 05:55] LABS: ALT (SGPT) 19 U/L (Less than 34); AST (SGOT) 17 U/L (11-34); Albumin 2.9 g/dL (3.1-4.5); Alkaline Phosphatase 77 U/L (40-110); Anion Gap 10 mmol/L (10-20); BUN (Urea Nitrogen) 12 mg/dL (9.8-20.1); Bilirubin, Total 0.4 mg/dL (0.3-1.2); Calc. Creatinine Clearance 173 mL/min (70-130); Calcium 8.2 mg/dL (7.8-10.44); Carbon Dioxide 27 mmol/L (23-31); Chloride 108 mmol/L (98-107); Globulin 2.6 g/dL (2.4-3.5); Glucose 84 mg/dL (80-115); Magnesium 2.5 mg/dL (1.6-2.6); Potassium 3.3 mmol/L (3.5-5.1); Sodium 142 mmol/L (136-145)
[2025-04-09 09:34] VITALS: BMI 35.3
[2025-04-09] MEDS ORDERED: Acetaminophen 500 MG TAB PO PRN (13:25)
[2025-04-09] MEDS: oxyCODONE 5 MG TAB PO PRN (14:15)
[2025-04-10 05:17] LABS: #Basophils 0.03 10x3/uL (0.0-0.2); #Eosinophils 0.13 10x3/uL (0.0-0.7); #Monocytes 0.96 10x3/uL (0.11-0.59); #Neutrophils 6.11 10x3/uL (1.40-6.50); %Basophils 0.3 % (0.0-1.0); %Eosinophils 1.3 % (0.0-10.0); %Lymphocytes 26.4 % (21.0-51.0); %Monocytes 9.7 % (0.0-10.0); %Neutrophils 61.6 % (42.0-75.0); Hematocrit 32.6 % (36.0-47.0); Hemoglobin 9.8 g/dL (12.0-16.0); Mean Corpuscular Hemoglobin 28.6 pg (27.0-31.0); Mean Corpuscular Volume 95.0 fL (78.0-98.0); Platelet Count 347 10x3/uL (130-400); Red Blood Cell (RBC) Count 3.43 mill/uL (4.20-5.40); White Blood Cell (WBC) Count 9.92 10x3/uL (4.8-10.8)
[2025-04-10 05:57] LABS: Potassium 3.6 mmol/L (3.5-5.1)
[2025-04-10] MEDS ORDERED: Morphine IR Tab 15 MG TAB PO PRN (10:16)
[2025-04-10] MEDS: HYDROcodone/Acetaminophen 10/325 mg Tablet PO PRN (11:59)
[2025-04-10] MEDS ORDERED: Acetaminophen 325 MG TAB PO PRN (16:56)
[2025-04-10] MEDS: Methocarbamol 500 MG TAB PO PRN (22:45)
[2025-04-11] MEDS: Enoxaparin 40 MG (0.4 mL) SYRINGE SC SCH (08:26)
[2025-04-11] MEDS ORDERED: Senokot 8.6 MG TAB PO PRN (15:36)
[2025-04-11] MEDS: Famotidine 20 MG TAB PO SCH (20:55)
[2025-04-12 09:04] VITALS: BP 151/104
[2025-04-12 12:48] VITALS: TEMP 99
== END 2025-04-12 13:58 | DRG 870 ==
LOC: ERS 03:37 → ERHOLD 06:42 → CCU 13:30 → T4-B 04-08 11:10
PROVIDERS: ADMIT Internal Medicine; ATTEND Internal Medicine
PROC: 03HY32Z Insertion of Monitoring Device into Upper Artery, Percutaneous Approach (ICD-10-PCS; 2025-03-26)
PROC: 4A133B1 Monitoring of Arterial Pressure, Peripheral, Percutaneous Approach (ICD-10-PCS; 2025-03-26)
PROC: 4A133J1 Monitoring of Arterial Pulse, Peripheral, Percutaneous Approach (ICD-10-PCS; 2025-03-26)
PROC: 5A1955Z Respiratory Ventilation, Greater than 96 Consecutive Hours (ICD-10-PCS; 2025-03-26)
PROC: 3E03329 Introduction of Other Anti-infective into Peripheral Vein, Percutaneous Approach (ICD-10-PCS; 2025-03-26)
PROC: 3E033XZ Introduction of Vasopressor into Peripheral Vein, Percutaneous Approach (ICD-10-PCS; 2025-03-26)
PROC: 0BH17EZ Insertion of Endotracheal Airway into Trachea, Via Natural or Artificial Opening (ICD-10-PCS; 2025-03-26)
PROC: 02HV33Z Insertion of Infusion Device into Superior Vena Cava, Percutaneous Approach (ICD-10-PCS; 2025-03-26)
PROC: 0DH67UZ Insertion of Feeding Device into Stomach, Via Natural or Artificial Opening (ICD-10-PCS; 2025-03-26)
PROC: 4A133R1 Monitoring of Arterial Saturation, Peripheral, Percutaneous Approach (ICD-10-PCS; principal; 2025-03-31)
PROC: 5A09357 Assistance with Respiratory Ventilation, Less than 24 Consecutive Hours, Continuous Positive Airway Pressure (ICD-10-PCS; 2025-04-05)
PROC: 5A09357 Assistance with Respiratory Ventilation, Less than 24 Consecutive Hours, Continuous Positive Airway Pressure (ICD-10-PCS; 2025-04-07)
PROC: 5A09357 Assistance with Respiratory Ventilation, Less than 24 Consecutive Hours, Continuous Positive Airway Pressure (ICD-10-PCS; 2025-04-09)
DX: A41.50 Gram-negative sepsis, unspecified (principal); G93.41 Metabolic encephalopathy; J18.9 Pneumonia, unspecified organism; R65.21 Severe sepsis with septic shock; J80 Acute respiratory distress syndrome; J15.69 Pneumonia due to other Gram-negative bacteria; J45.901 Unspecified asthma with (acute) exacerbation; E87.20 Acidosis, unspecified; E27.40 Unspecified adrenocortical insufficiency; E87.0 Hyperosmolality and hypernatremia; F33.9 Major depressive disorder, recurrent, unspecified; Z51.5 Encounter for palliative care; R13.10 Dysphagia, unspecified; Z79.899 Other long term (current) drug therapy; Z98.890 Other specified postprocedural states; Z87.891 Personal history of nicotine dependence; Z88.2 Allergy status to sulfonamides; Z88.8 Allergy status to other drugs, medicaments and biological substances; D72.819 Decreased white blood cell count, unspecified; F41.9 Anxiety disorder, unspecified; D64.9 Anemia, unspecified; Z93.3 Colostomy status; Z93.0 Tracheostomy status; R33.9 Retention of urine, unspecified; R07.9 Chest pain, unspecified; I95.2 Hypotension due to drugs; G89.4 Chronic pain syndrome; E87.6 Hypokalemia; E83.42 Hypomagnesemia; R79.89 Other specified abnormal findings of blood chemistry; Z78.1 Physical restraint status
CPT/HCPCS: 36415; 36600; 51702; 70450; 71045; 71275; 74177; 80048; 80053; 80202; 80306; 80307; 81001; 82533; 82805; 83605; 83690; 83735; 83880; 84132; 84145; 84484; 85025; 85060; 87040; 87428; 93005; 93970; 94002; 94003; 94640; 94660; 96365; 96366; 96368; 96375; 96376; J0360; J0692; J0696; J1100; J1200; J1308; J1650; J1720; J1885; J1940; J2183; J2250; J2270; J2405; J2543; J2704; J3010; J3373; J3475; J3480; J7030; J7050; J7512; J7626; Q9967